=== PATIENT | male | born 1965 | race Two or more races ===

== ENCOUNTER 2017-08-03 09:52 | Day surgery (SDC) | payer OTHER ==
[~2017-08-03] VITALS: Ht 185.4 cm; Wt 140.1 kg
[~2017-08-03 09:52] MED LIST: ACET500 PO; ALBIPROI; ALBU90OI INH; ALBU90OI61 INH; BUPR150ER PO; Budeprion Sr150 MG PO; CEPH500; CEPH500 PO; CIPR500 PO; CLIN300 PO; CLOT1TC TOP; DOC250 PO; DOXY100 PO; ESZO2 PO; Esgic Tablet1 EACH PO; FAMO20 PO; HYDACE5; HYDACE5 PO; HYDACE5325 PO; HYDCOR2.5C PR; IBUHYD PO; IBUP800; IBUP800 PO; IBUPROFEN200 MG; Kristalose20 GM PO; LACTULOSE20 GM/30 M PO; LORA1 PO; MECL25 PO; MUPI2TO TOP; NAPR500 PO; NITR.4SL SL; OMEP20ER PO; OMEP40CA12 PO; ONDA4 PO; ONDA8ODT MM; OXYACE5T PO; OXYACE7.5T PO; OXYC5 PO; Omeprazole20 M1 PO; PERM5TC TOP; PROC10 PO; PROM25; PROM25 PO; Percocet 5-3251 EACH PO; RXHYDACE; RXHYDACE PO; RXLORA1 PO; RXOXYACE PO; RXPROM25 PO; RXSULTRIDS PO; SERT50 PO; SULTRIDS PO; SULTRISS; TRAZ50 PO; ULTRA STRENGT PO; VANC250 PO
== END 2017-08-03 11:59 | disposition home or self-care (01) ==
LOC: ORSCSDS 09:52
PROVIDERS: Internal Medicine Gastroenterology
PROC: 0DBM8ZX Excision of Descending Colon, Via Natural or Artificial Opening Endoscopic, Diagnostic (ICD-10-PCS; principal; 2017-08-03 11:00)
PROC: 0DBN8ZX Excision of Sigmoid Colon, Via Natural or Artificial Opening Endoscopic, Diagnostic (ICD-10-PCS; principal; 2017-08-03 11:00)
PROC: 0DBP8ZX Excision of Rectum, Via Natural or Artificial Opening Endoscopic, Diagnostic (ICD-10-PCS; principal; 2017-08-03 11:00)
PROC: 0DB68ZX Excision of Stomach, Via Natural or Artificial Opening Endoscopic, Diagnostic (ICD-10-PCS; principal; 2017-08-03 11:00)
PROC: 0DB98ZX Excision of Duodenum, Via Natural or Artificial Opening Endoscopic, Diagnostic (ICD-10-PCS; principal; 2017-08-03 11:00)
DX: R11.0 Nausea (principal); K29.50 Unspecified chronic gastritis without bleeding; K63.5 Polyp of colon; K62.1 Rectal polyp; K64.8 Other hemorrhoids; K62.5 Hemorrhage of anus and rectum; Z86.010 Personal history of colon polyps; B19.20 Unspecified viral hepatitis C without hepatic coma; G47.33 Obstructive sleep apnea (adult) (pediatric); F17.210 Nicotine dependence, cigarettes, uncomplicated; F41.9 Anxiety disorder, unspecified; Z79.899 Other long term (current) drug therapy
CPT/HCPCS: 88305; 88342; J2250; J7120

== ENCOUNTER → 2018-11-13 | Outpatient (CLI) | payer OTHER ==
[2018-11-13 18:58] LABS: U Amphetamine Screen Not Detected; U Barbituate Screen Not Detected; U Benzodiazapine Screen Not Detected; U Buprenorphine Screen Not Detected; U Cannabinoids Screen DETECTED; U Cocaine Screen Not Detected; U Methadone Screen Not Detected; U Methamphetamine Screen Not Detected; U Opiates Screen Not Detected; U Oxycodone Screen Not Detected; U Phencyclidine Screen Not Detected; U Propoxyphene Screen Not Detected
== END | disposition home or self-care (01) ==
LOC: LAB 18:15 → LAB SHORT 18:15
PROVIDERS: Psychiatry & Neurology Psychiatry
DX: F43.10 Post-traumatic stress disorder, unspecified (principal)

== ENCOUNTER 2019-06-29 14:36 | Emergency (ER) | payer OTHER ==
[~2019-06-29] VITALS: Ht 185.4 cm; Wt 136.1 kg
[2019-06-29 16:10] LABS: BASOPHILS ABSOLUTE AUTO 0.02 K/mm3 (0.00-0.23); BASOPHILS PERCENT AUTO 0 % (0-2); EOSINOPHILS ABSOLUTE AUTO 0.17 K/mm3 (0.00-0.68); EOSINOPHILS PERCENT AUTO 2 % (0-6); Hematocrit 51.3 % (37.0-53.0); Hemoglobin 17.2 g/dL (13.5-17.5); IMMATURE GRAN ABSOLUTE AUTO 0.01 K/mm3 (0.00-0.10); IMMATURE GRAN PERCENT AUTO 0 % (0-1); LYMPHOCYTES ABSOLUTE AUTO 1.69 K/mm3 (0.84-5.20); LYMPHOCYTES PERCENT AUTO 23 % (21-46); MONOCYTES ABSOLUTE AUTO 0.62 K/mm3 (0.16-1.47); MONOCYTES PERCENT AUTO 8 % (4-13); Mean Corpuscular HGB 29.4 pg (26.0-34.0); Mean Corpuscular HGB Conc 33.5 g/dL (31.5-36.5); Mean Corpuscular Volume 88 fL (80-100); Mean Platelet Volume 10.7 fL (9.1-12.4); NEUTROPHILS ABSOLUTE AUTO 4.87 K/mm3 (1.96-9.15); NEUTROPHILS PERCENT AUTO 66 % (41-73); Platelet Count 180 K/mm3 (150-400); RDW Coefficient Variation 13.2 % (11.7-14.2); RDW Standard Deviation 42.9 fL (35.1-46.3); Red Blood Cell Count 5.86 M/mm3 (4.30-5.90); White Blood Cell Count 7.38 K/mm3 (4.00-11.30)
[2019-06-29 16:32] LABS: Alanine Aminotransfer (ALT/SGP 32 U/L (12-78); Albumin/Globulin Ratio 0.9 (0.8-1.8); Alk Phos 108 U/L (50-136); Anion Gap 3 mmol/L (6-16); Aspartate Aminotrans (AST/SGOT 16 U/L (12-37); Bilirubin, Total 0.5 mg/dL (0.1-1.0); Blood Urea Nitrogen 13 mg/dL (8-24); Bun/Creatinine Ratio 17.1 (12.0-20.0); CO2, Blood 28 mmol/L (21-32); Calcium, Blood 9.1 mg/dL (8.5-10.1); Chloride, Blood 108 mmol/L (98-108); Creatinine, Blood 0.76 mg/dL (0.60-1.20); Globulin, Blood 4.5 g/dL (2.2-4.0); Glomerular Filtration Rate >60 (60-); Glucose, Blood 83 mg/dL (70-99); Potassium, Blood 3.8 mmol/L (3.5-5.5); Sodium, Blood 139 mmol/L (136-145); Total Protein, Blood 8.5 g/dL (6.4-8.2); Troponin I <0.015 ng/mL (0.000-0.040)
[2019-06-29] MEDS ORDERED: ISODIN10 (17:14)
[2019-06-29] MEDS ORDERED: NITR.4SL SL (17:14)
[2019-06-29] MEDS ORDERED: Adderall 15 MG15 MG PO (17:15)
== END 2019-06-29 20:57 | disposition home or self-care (01) ==
LOC: ER 14:36
PROVIDERS: Physician Assistant
DX: R07.9 Chest pain, unspecified (principal)
CPT/HCPCS: 36415; 71046; 80053; 83690; 83880; 84484; 85025; 93005; 93010; 96374; 96375; 99285-25; J1170; J2405

== ENCOUNTER 2020-06-22 11:56 | Day surgery (SDC) | payer OTHER ==
[~2020-06-22] VITALS: Ht 185.4 cm; Wt 137.4 kg
[~2020-06-22 11:56] MED LIST changes: +Adderall 15 MG15 MG PO; +CONSTULOSE10 GM/15 M PO; +ISODIN10; +Seroquel Xr50 MG PO
--- NOTE | 2020-06-22 13:10 | NUR ---
06/22/20 1310 Loraine Cardozo 3 ATTEMPT LEFT AC, 4TH ATEMPT LH UNSUCCESSFUL BY [email or web address]
[2020-08-13] MEDS ORDERED: TRAZ50 (11:28)
[2020-08-13] MEDS ORDERED: SERT50 (11:28)
[2020-08-13] MEDS ORDERED: PROM25 (11:28)
== END 2020-06-22 14:15 | disposition home or self-care (01) ==
LOC: ORSCSDS 11:56
DX: Z12.11 Encounter for screening for malignant neoplasm of colon (principal); G89.29 Other chronic pain; K21.9 Gastro-esophageal reflux disease without esophagitis; G47.33 Obstructive sleep apnea (adult) (pediatric); J44.9 Chronic obstructive pulmonary disease, unspecified; Z86.010 Personal history of colon polyps; Z88.1 Allergy status to other antibiotic agents; Z88.8 Allergy status to other drugs, medicaments and biological substances; Z79.899 Other long term (current) drug therapy; Z87.891 Personal history of nicotine dependence; Z20.822 Contact with and (suspected) exposure to COVID-19
CPT/HCPCS: J2704; J7120

== ENCOUNTER 2020-08-20 11:47 | Day surgery (SDC) | payer OTHER ==
[~2020-08-20] VITALS: Ht 185.4 cm; Wt 138.5 kg
[~2020-08-20 11:47] MED LIST changes: +SERT50; +TRAZ50
--- NOTE | 2020-08-20 12:37 | NUR ---
08/20/20 1237 Josefina Acosta PT HAS DIFFICULTY TOLERATING IV ATTEMPTS. 2 ATTEMPTS IN RIGHT HAND NO FLASHBACK. PT STATES HE WAS GOING TO PASS OUT, PT DISPLAYED LABORED BREATHING AND PT APPEARED TO PASS OUT, NO LONGER THAN 60 SECONDS. PT CLAMMY, ABLE TO STATE WHERE HE IS AND IS ORIENTED AFTER EPISODE.
--- NOTE | 2020-08-20 14:30 | NUR ---
08/20/[address] SUGGS HAD SPOKE WITH THE PATIENT AND TOLD HIM ALL OK THE PATIENT BEGAN COMPLAINING OF BEING DIZZY. HE ASKED ME REPEATEDLY IF HIS COULD COME BACK AND GET HIM DRESSED. I EXPLAINED THAT DUE TO THE COVID RESTRICTIONS THAT WASN'T ALLOWED AND I WOULD HELP HIM DRESS. HE THAN BEGAN TO EXPLAIN OF NAUSEA. DOLLY TUCKER AND I BOTH ASSISTED HIM WITH DRESSING AND PATIENT KEPT TRYING TO LIE DOWN ON THE BED AND WE KEPT REFUSING AND MAKING HIM SIT UP. WE FINISHED DRESSING HIM AND ASSISTED HIM TO THE WHEEL CHAIR AND TOOK HIM OUT TO HIS
== END 2020-08-20 14:15 | disposition home or self-care (01) ==
LOC: ORSCSDS 11:47 → ORD 14:00 → ORSCSDS 14:15
DX: R13.10 Dysphagia, unspecified (principal); Z86.010 Personal history of colon polyps; D12.5 Benign neoplasm of sigmoid colon; D12.3 Benign neoplasm of transverse colon; K63.5 Polyp of colon; K64.8 Other hemorrhoids; G47.33 Obstructive sleep apnea (adult) (pediatric); K74.60 Unspecified cirrhosis of liver; F41.8 Other specified anxiety disorders; B19.20 Unspecified viral hepatitis C without hepatic coma; F31.9 Bipolar disorder, unspecified; E66.9 Obesity, unspecified; Z68.41 Body mass index [BMI] 40.0-44.9, adult; K21.9 Gastro-esophageal reflux disease without esophagitis; Z79.899 Other long term (current) drug therapy
CPT/HCPCS: 88305; J2704; J7120

== ENCOUNTER 2021-06-05 11:14 | Observation (INO) | payer OTHER ==
[~2021-06-05] VITALS: Ht 185.4 cm; Wt 136.1 kg
[2021-06-05 12:43] LABS: BASOPHILS ABSOLUTE AUTO 0.02 K/mm3 (0.00-0.23); BASOPHILS PERCENT AUTO 0 % (0-2); EOSINOPHILS ABSOLUTE AUTO 0.22 K/mm3 (0.00-0.68); EOSINOPHILS PERCENT AUTO 3 % (0-6); Hematocrit 48.8 % (37.0-53.0); Hemoglobin 16.3 g/dL (13.5-17.5); IMMATURE GRAN ABSOLUTE AUTO 0.02 K/mm3 (0.00-0.10); IMMATURE GRAN PERCENT AUTO 0 % (0-1); LYMPHOCYTES ABSOLUTE AUTO 1.86 K/mm3 (0.84-5.20); LYMPHOCYTES PERCENT AUTO 23 % (21-46); MONOCYTES ABSOLUTE AUTO 0.64 K/mm3 (0.16-1.47); MONOCYTES PERCENT AUTO 8 % (4-13); Mean Corpuscular HGB 29.5 pg (26.0-34.0); Mean Corpuscular HGB Conc 33.4 g/dL (31.5-36.5); Mean Corpuscular Volume 88 fL (80-100); Mean Platelet Volume 10.8 fL (9.1-12.4); NEUTROPHILS ABSOLUTE AUTO 5.22 K/mm3 (1.96-9.15); NEUTROPHILS PERCENT AUTO 65 % (41-73); Platelet Count 164 K/mm3 (150-400); RDW Coefficient Variation 13.2 % (11.7-14.2); RDW Standard Deviation 42.9 fL (35.1-46.3); Red Blood Cell Count 5.53 M/mm3 (4.30-5.90); White Blood Cell Count 7.98 K/mm3 (4.00-11.30)
[2021-06-05 13:02] LABS: Troponin I <0.015 ng/mL (0.000-0.040)
[2021-06-05 13:03] LABS: Alanine Aminotransfer (ALT/SGP 40 U/L (12-78); Albumin, Blood 3.4 g/dL (3.4-5.0); Albumin/Globulin Ratio 0.8 (0.8-1.8); Alk Phos 99 U/L (50-136); Anion Gap 4 mmol/L (6-16); Aspartate Aminotrans (AST/SGOT 20 U/L (12-37); Bilirubin, Total 0.5 mg/dL (0.1-1.0); Blood Urea Nitrogen 11 mg/dL (8-24); Bun/Creatinine Ratio 14.8 (12.0-20.0); CO2, Blood 29 mmol/L (21-32); Calcium, Blood 8.9 mg/dL (8.5-10.1); Chloride, Blood 108 mmol/L (98-108); Creatinine, Blood 0.74 mg/dL (0.60-1.20); Globulin, Blood 4.4 g/dL (2.2-4.0); Glomerular Filtration Rate >60 (60-); Glucose, Blood 99 mg/dL (70-99); Potassium, Blood 3.8 mmol/L (3.5-5.5); Sodium, Blood 141 mmol/L (136-145); Total Protein, Blood 7.8 g/dL (6.4-8.2)
--- NOTE | 2021-06-05 20:31 | NUR ---
ADMIT NURSING NOTE 55 YR OLD MALE ADMITTED TO FLOOR FROM THE ED WITH LEFT SIDE CHEST PAIN AND LEFT GROIN PAIN. VOICED SOME INTERMITTTENT NUMBNESS IN LEFT HAND. PLACED ON TELE - SINUS ANU. PAIN CURRENTLY AT 6:10. ALERT AND ORIENTED. ORIENTED TO USE OF CALL LIGHT AND FALL PRECAUTIONS. CALL LIGHT IN REACH
--- NOTE | 2021-06-05 21:22 | NUR ---
CHEST PAIN: WAS 6:10, FRST DOSE OF NITRO SL GIVEN. PAIN DROPPED TO 3:10 5 MIN LATER, RECEIVED 2ND DOSE OF NITRO SL AND PAIN DROPPED TO 0:10. ASYMPTOMATIC. REFUSED HS MEDS. ORIENTED TO CALL LIGHT. RAILS UP X 2. AGREES TO CALL IF NEEDS ARRISE.
--- NOTE | 2021-06-05 22:15 | NUR ---
VOICED FEELING "GOOD", DENIED ANY PAIN. ASYMPTOMATIC. CALL LIGHT IN REACH
--- NOTE | 2021-06-06 00:25 | NUR ---
AWAKENED FOR NEURO CHECK. DENIED CHEST PAIN. NOTE SLIGHT LEFT DROOP OF MOUTH. NO C/O OTHERWISE. ASYMPTOMATIC OTHERWISE. CALL LIGHT IN REACH
--- NOTE | 2021-06-06 02:49 | NUR ---
HAS BEEN RESTING QUIETLY. HEART RATE ANU CARDIC - WAS HIGH 40'S PER MED TELE. UPON ARRIVAL AT ROOM, PT WAS SLEEPING, AWAKENED AND SMILED, DENIED PAIN. STATED WAS FINE. CALL LIGHT IN REACH
--- NOTE | 2021-06-06 03:14 | NUR ---
CVT RN SUMMARY 55 YR OLD ADMITTED EARLIER THIS SHIFT WITH DX OF LEFT CHEST PAIN AND LEFT GROIN PAIN. C/O LEFT HAND NUMBNESS AT THE TIME WELL. PLACED ON MED TELE AND WAS GIVEN NITRO SL, 2 DOSES 5 MIN APART. MED EFFECTIVE, NO C/O CHEST PAIN SINCE. HR ANU CARDIC. ASYMPTOMATIC. ALERT AND ORIENTED. CALL LIGHT IN REACH
[2021-06-06 10:16] LABS: Influenza A, PCR NEGATIVE (NEGATIVE); Influenza B, PCR NEGATIVE (NEGATIVE); Resp Syncytial Virus, PCR NEGATIVE (NEGATIVE); SARS-Cov-2 (COVID-19) PCR, MMC NEGATIVE (NEGATIVE)
[2021-06-06 16:48] LABS: CHOL/HDL RATIO 3.7; Cholesterol 145 mg/dL (50-200); HDL Cholesterol 39 mg/dL (>39); LDL/HDL RATIO 2.2; Low Density Lipoprotein Chol 87 mg/dL (0-110); Triglycerides 96 mg/dL (30-160); Very Low Density Lipoprot Chol 19 mg/dL (6-32)
--- NOTE | 2021-06-06 18:39 | NUR ---
SHIFT SUMMARY PT A/O X4; PLEASANT AND COOPERATIVE WITH CARE. ADMITTED FOR CHEST PAIN. DENIES CP THIS SHIFT AND HAS MOSTLY EXPERIENCED PAIN IN HIS HIPS AND NAUSEA. TREATED PER EMR. 2 PART STRESS TEST STARTING TOMORROW AM. NPO AT MIDNIGHT EXCEPT FOR WATER. PT CAN HAVE BREAKFAST AFTER THE TEST. THE SECOND PART OF THE TEST WILL BE COMPLETED ON . VSS. WILL REPORT TO SIERRA ALBERTO.
--- NOTE | 2021-06-06 20:35 | NUR ---
AWAKENED FOR ASSESSMENT. DENIED CHEST PAIN. DISCUSSED NPO AFTER MIDNIGHT AND CARDIAC STRESS TEST TOMORROW. AGREES TO USE CALL LIGHT IF NEEDS ARRISE. CALL LIGHT IN REACH
--- NOTE | 2021-06-07 04:39 | NUR ---
GEOLOGICAL ENGINEER SUMMARY HAS BEEN RESTING QUIETLY WITH FEW INTERRUPTIONS SINCE HS. DENIED CHEST PAIN, VSS. NPO SINCE MIDNIGHT FOR PREPARATION OF CARDIAC STRESS TEST LATER TODAY. CALL LIGHT IN REACH.
--- NOTE | 2021-06-07 06:40 | NUR ---
EARLIER WHEN NURSE ASSESSED NEURO, PT VOICED VERTIGO WITH NAUSEA AND SOME EMESIS. IV HAD SOME PAIN AND PT DID NOT WANT ANOTHER IV PLACED, MD NOTIFIED AND ONE TIME DOSE OF ZOFRAN SL ORDERED AND GIVEN. NO C/O VOICED SINCE MED GIVEN EARLIER. CALL LIGHT IN REACH
--- NOTE | 2021-06-07 11:31 | NUR ---
PT REQUESTED A LAXITIVE- ASKED PT WWHAT HE TAKES AT HOME FOR A LLAXITIVE AND HER RESPONDED WITH LACTULOSE. PT WENT ON TO EXPLAIN HE TAKES IT ONE TO TWO TIMES A DAY TO KEEP HIM REGULAR AND KEEP HIS AMMONIA DOWN SINCE HE HAD HEP-C. SPOKE TO DR MILLER SHE IS AWARE, RECIEVED AN PRDER FOR BID PRN LACTULOSE. WILL ADMINISTER SOON IT IS VERIFIED BY PHARMACY.
--- NOTE | 2021-06-07 13:48 | NUR ---
CARE ROUNDING- CHECKED ON THE PT HE WAS A LITTLE COLD REQUESTED ROOM TEMP INCREASE, PT STATED HIS BACK PAIN WAS WELL MANAGED WITH THE HEATING PAD NO NEED FOR TYLENOL AT THIS TIME. ENCOURAGED THE PT TO DRINK MORE WATER WELL, HE STATED HE HAD COMPLETELY FORGOTEN HE WAS SUPPOSED TO DRINK. WILL CTM AND ENCOURAGE PO FLUID INTAKE.
--- NOTE | 2021-06-07 16:50 | NUR ---
SHIFT SUMMARY- PT HAS HAD NO ACUTE CHANGE T/O THE DAY. HE DID C/O SOME DIZZINESS THIS MORNING, WHICH APPARENTLY HAPPENS ALOT AT HOME. PERFORMED ORTHOSTATIC VITALS, SPOKE TO DR HEARD, STARTED MECLIZINE, ADMINISTERED A 250ML FLUID BOLUS. PT STATED THE DIZZINESS WAS BETTER 1 HOUR LATER. PT JUST NOW REQUESTED A PRN DOSE OF MECLIZINE FOR SOME DIZZINESS, NO NAUSEA AT THIS TIME. WILLL MEDICATE PER EMAR AND CTM. PT HAD THE FIRST HALF OF A CARDIAC STRESS TEST TODAY ANND DR HEARD SPPOKE TO THE SPOUSE WHEN THE SPOUSE ARRIVED TO SEE THE PT THIS AFTERNOON. PT CURRENTLY SITTING AT THE EOB, DENIES C/P C/O DIZZINESS AT THIS MOMENT.
--- NOTE | 2021-06-07 22:26 | NUR ---
IN BED, ASSISETDWITH CPAP. DISCUSSED NPO AT MIDNIGHT EXCEPT WATER FOR PROCEDURE SCHEDULED TOMORROW. VOICED UNDERSTANDING AND AGREEMENT. POWERGLIDE FUSHED. CALL LIGHT IN REACH.
--- NOTE | 2021-06-08 03:22 | NUR ---
SECTIONAL BELT MOLD ASSEMBLER SUMMARY HAS BEEN RESTING QUIETLY SINCE HS WITH C-PAP IN USE. O2 SATS IN 90'S. NPO EXCEPT WATER SINCE MIDNIGHT FOR CARDIAC PROCEDURE LATER TODAY. DENIED CHEST PAIN WHEN ASKED, NO C/O VOICED OF THIS WRITING. CALL LIGHT IN REACH
[2021-06-08] MEDS ORDERED: ASPI81CH PO (14:05)
[2021-06-08] MEDS ORDERED: Nicoderm Cq1 EAC1 TOP (14:06)
[2021-06-08] MEDS ORDERED: ATOR20 PO (14:07)
--- NOTE | 2021-06-08 14:57 | NUR ---
DISCHARGE SUMMARY PT DISCHARGED TODAY AT 1448 TO HOME. PT's FAMILY AT BEDSIDE DURING DISCHARGE PROCESS. PT VERBALIZED UNDERSTANDING OF DISCHARGE TEACHING AND ORDERS. NO COMPLAINTS OR ISSUES NOTED FROM PT PRIOR TO DC. POWERGLIDE TO ISIDRA AND TELE DISCONTINUED PRIOR TO DISCHARGE. DC PAPERWORK GIVEN TO PT.
== END 2021-06-08 14:46 | disposition home or self-care (01) ==
LOC: ER 11:14 → MEDS 11:15
PROVIDERS: Emergency Medicine; Internal Medicine; ADMIT Internal Medicine
DX: R07.9 Chest pain, unspecified (principal); R42 Dizziness and giddiness; R55 Syncope and collapse; R47.81 Slurred speech; R53.1 Weakness; R10.32 Left lower quadrant pain; I10 Essential (primary) hypertension; I77.9 Disorder of arteries and arterioles, unspecified; G47.33 Obstructive sleep apnea (adult) (pediatric); J44.9 Chronic obstructive pulmonary disease, unspecified; F32.A Depression, unspecified; F17.210 Nicotine dependence, cigarettes, uncomplicated; E66.9 Obesity, unspecified; Z68.39 Body mass index [BMI] 39.0-39.9, adult; Z88.1 Allergy status to other antibiotic agents; Z88.8 Allergy status to other drugs, medicaments and biological substances; Z20.822 Contact with and (suspected) exposure to COVID-19
CPT/HCPCS: 0241U; 36415; 70450; 71046; 71275; 78452; 80053; 80061; 83735; 84484; 85025; 90686; 93005; 93010; 93017; 93306; 93880; 94660; 94760; 94762; 96372; 96374; 96375; 96376; 99285-25; A9270; A9500; C1751; G0008; G0378; J1170; J1650; J2405; J2785; J7050; Q9967

== ENCOUNTER 2022-07-12 18:25 | Emergency (ER) | payer OTHER ==
[~2022-07-12] VITALS: Ht 188 cm; Wt 136.1 kg
[~2022-07-12 18:25] MED LIST changes: +ASPI81CH PO; +ATOR20 PO; +Nicoderm Cq1 EAC1 TOP
[2022-07-12 19:19] LABS: BASOPHILS ABSOLUTE AUTO 0.03 K/mm3 (0.00-0.23); BASOPHILS PERCENT AUTO 0 % (0-2); EOSINOPHILS ABSOLUTE AUTO 0.22 K/mm3 (0.00-0.68); EOSINOPHILS PERCENT AUTO 2 % (0-6); Hemoglobin 16.3 g/dL (13.5-17.5); IMMATURE GRAN ABSOLUTE AUTO 0.03 K/mm3 (0.00-0.10); IMMATURE GRAN PERCENT AUTO 0 % (0-1); LYMPHOCYTES ABSOLUTE AUTO 1.76 K/mm3 (0.84-5.20); LYMPHOCYTES PERCENT AUTO 15 % (21-46); MONOCYTES ABSOLUTE AUTO 0.82 K/mm3 (0.16-1.47); MONOCYTES PERCENT AUTO 7 % (4-13); Mean Corpuscular HGB 29.8 pg (26.0-34.0); Mean Corpuscular HGB Conc 35.4 g/dL (31.5-36.5); Mean Corpuscular Volume 84 fL (80-100); Mean Platelet Volume 10.8 fL (9.1-12.4); NEUTROPHILS ABSOLUTE AUTO 8.55 K/mm3 (1.96-9.15); NEUTROPHILS PERCENT AUTO 75 % (41-73); Platelet Count 184 K/mm3 (150-400); RDW Coefficient Variation 12.8 % (11.7-14.2); RDW Standard Deviation 39.2 fL (35.1-46.3); Red Blood Cell Count 5.47 M/mm3 (4.30-5.90); White Blood Cell Count 11.41 K/mm3 (4.00-11.30)
[2022-07-12 19:40] LABS: Albumin, Blood 3.5 g/dL (3.4-5.0); Albumin/Globulin Ratio 0.8 (0.8-1.8); Bilirubin, Total 0.8 mg/dL (0.1-1.0); Bun/Creatinine Ratio 13.6 (12.0-20.0); Creatinine, Blood 0.74 mg/dL (0.60-1.20); Globulin, Blood 4.5 g/dL (2.2-4.0); Potassium, Blood 3.8 mmol/L (3.5-5.5)
[2022-07-12 20:02] LABS: Source, Urine Clean Catch
[2022-07-12 20:05] LABS: Appearance, Urine Clear (Clear); Bilirubin, Urine Neg (Neg); Blood, Urine Neg (Neg); Color, Urine Yellow (P-Yellow); Glucose Qualitative, Urine Neg (Neg); Ketones, Urine Neg (Neg); Leukocyte Esterase, Urine Neg (Neg); Nitrite, Urine Neg (Neg); Protein, Urine Neg (Neg); Specific Gravity, Urine 1.015 (1.003-1.022); Urobilinogen, Urine NORM (Normal); pH, Urine 6.5 (5.0-8.0)
[2022-07-12] MEDS ORDERED: AMPDEX5 PO (20:13)
[2022-07-13] MEDS ORDERED: ONDA4ODT MM (00:14)
[2022-07-13] MEDS ORDERED: OXAYDO5 M1 PO (00:14)
== END 2022-07-13 00:40 | disposition home or self-care (01) ==
LOC: ER 18:25
PROVIDERS: Emergency Medicine
DX: K85.90 Acute pancreatitis without necrosis or infection, unspecified (principal); J44.9 Chronic obstructive pulmonary disease, unspecified; Z88.1 Allergy status to other antibiotic agents; Z88.8 Allergy status to other drugs, medicaments and biological substances; Z79.899 Other long term (current) drug therapy; Z79.82 Long term (current) use of aspirin; Z87.891 Personal history of nicotine dependence
CPT/HCPCS: 36415; 74177; 80053; 81003; 83690; 84484; 85025; 93005; 93010; 96374-59; 96375; 99284-25; A9270; J2270; J2405; Q9967

== ENCOUNTER 2023-11-12 13:16 | Emergency (ER) | payer OTHER ==
[~2023-11-12] VITALS: Ht 188 cm; Wt 134.7 kg
[~2023-11-12 13:16] MED LIST changes: +AMPDEX5 PO; +ONDA4ODT MM; +OXAYDO5 M1 PO
[2023-11-12] MEDS ORDERED: Droperidol 5 mg/2 ml Vial IV ONE (14:30)
[2023-11-12] MEDS ORDERED: Lactated Ringer's 1,000 ML IV ONE (14:30)
[2023-11-12 15:12] LABS: BASOPHILS ABSOLUTE AUTO 0.02 K/mm3 (0.00-0.23); BASOPHILS PERCENT AUTO 0 % (0-2); EOSINOPHILS ABSOLUTE AUTO 0.18 K/mm3 (0.00-0.68); EOSINOPHILS PERCENT AUTO 3 % (0-6); Hematocrit 44.1 % (37.0-53.0); Hemoglobin 15.3 g/dL (13.5-17.5); IMMATURE GRAN ABSOLUTE AUTO 0.02 K/mm3 (0.00-0.10); IMMATURE GRAN PERCENT AUTO 0 % (0-1); LYMPHOCYTES PERCENT AUTO 32 % (21-46); MONOCYTES ABSOLUTE AUTO 0.58 K/mm3 (0.16-1.47); MONOCYTES PERCENT AUTO 11 % (4-13); Mean Corpuscular HGB 29.8 pg (26.0-34.0); Mean Corpuscular HGB Conc 34.7 g/dL (31.5-36.5); Mean Corpuscular Volume 86 fL (80-100); Mean Platelet Volume 10.9 fL (9.1-12.4); NEUTROPHILS ABSOLUTE AUTO 2.84 K/mm3 (1.96-9.15); NEUTROPHILS PERCENT AUTO 53 % (41-73); Platelet Count 209 K/mm3 (150-400); RDW Coefficient Variation 13.2 % (11.7-14.2); RDW Standard Deviation 41.3 fL (35.1-46.3); Red Blood Cell Count 5.13 M/mm3 (4.30-5.90); White Blood Cell Count 5.34 K/mm3 (4.00-11.30)
[2023-11-12] MEDS ORDERED: Ondansetron HCl 2 MG / ML 2ML Vial IV ONE (15:15)
[2023-11-12] MEDS ORDERED: Morphine Sulfate 4 MG/1 ML Injection IV ONE (15:15)
[2023-11-12] MEDS ORDERED: CeFAZolin Sodium 2,000 MG in NS 100 ML IV ONE (15:15)
[2023-11-12 16:12] VITALS: BP 143/99
[2023-11-12 16:15] LABS: Magnesium, Blood 1.7 mg/dL (1.6-2.4)
[2023-11-12 16:16] LABS: Albumin, Blood 3.5 g/dL (3.4-5.0); Albumin/Globulin Ratio 0.8 (0.8-1.8); Bilirubin, Total 0.9 mg/dL (0.1-1.0); Bun/Creatinine Ratio 12.4 (12.0-20.0); Calcium, Blood 9.3 mg/dL (8.5-10.1); Creatinine, Blood 0.65 mg/dL (0.60-1.20); Globulin, Blood 4.3 g/dL (2.2-4.0); Potassium, Blood 3.4 mmol/L (3.5-5.5); Total Protein, Blood 7.8 g/dL (6.4-8.2)
[2023-11-12] MEDS ORDERED: Cephalexin500 MG PO (16:26)
[2023-11-12] MEDS ORDERED: OXYC5 PO (16:26)
== END 2023-11-12 17:02 | disposition home or self-care (01) ==
LOC: ER 13:16
PROVIDERS: Physician Assistant
DX: L03.115 Cellulitis of right lower limb (principal); J44.9 Chronic obstructive pulmonary disease, unspecified; Z79.899 Other long term (current) drug therapy; Z79.82 Long term (current) use of aspirin; Z88.1 Allergy status to other antibiotic agents; Z88.8 Allergy status to other drugs, medicaments and biological substances; Z87.891 Personal history of nicotine dependence
CPT/HCPCS: 73590; 80053; 83735; 85025; 93971; 96365; 96375; 99284-25; J0690; J1790; J2270; J7120

== ENCOUNTER 2024-05-10 14:36 | Inpatient (IN) | payer OTHER ==
[~2024-05-10] VITALS: Ht 188 cm; Wt 132.6 kg
[~2024-05-10 14:36] MED LIST changes: +Cephalexin500 MG PO
[2024-05-10] MEDS ORDERED: OxyCODONE HCL 5 MG TAB PO ONE ×2 (14:50→16:55)
[2024-05-10] MEDS ORDERED: Ondansetron HCl 2 MG / ML 2ML Vial IV ONE (15:10)
[2024-05-10] MEDS ORDERED: Vancomycin HCL 2,000 MG in NS 500 ML IV ONE (15:10)
[2024-05-10 15:29] LABS: Hematocrit 43.7 % (37.0-53.0); Hemoglobin 15.8 g/dL (13.5-17.5); Mean Corpuscular HGB 30.1 pg (26.0-34.0); Mean Corpuscular HGB Conc 36.2 g/dL (31.5-36.5); Mean Corpuscular Volume 83 fL (80-100); Mean Platelet Volume 10.9 fL (9.1-12.4); NRBC ABSOLUTE 0.03 K/mm3 (0.00-0.02); NRBC Auto 0.1 /100 WBC (0.0-0.2); Platelet Count 171 K/mm3 (150-400); RDW Coefficient Variation 13.3 % (11.7-14.2); RDW Standard Deviation 40.8 fL (35.1-46.3); Red Blood Cell Count 5.25 M/mm3 (4.30-5.90); White Blood Cell Count 22.81 K/mm3 (4.00-11.30)
[2024-05-10 15:43] LABS: Albumin/Globulin Ratio 0.4 (0.8-1.8); Bilirubin, Direct 0.7 mg/dL (0.0-0.3); Bilirubin, Indirect 0.8 mg/dL (0.1-0.7); Bilirubin, Total 1.5 mg/dL (0.1-1.0); Bun/Creatinine Ratio 32.7 (12.0-20.0); Creatinine, Blood 0.77 mg/dL (0.60-1.20); Globulin, Blood 5.1 g/dL (2.2-4.0); Magnesium, Blood 2.5 mg/dL (1.6-2.4); Phosphorus, Blood 1.9 mg/dL (2.5-4.9); Potassium, Blood 3.9 mmol/L (3.5-5.5); Total Protein, Blood 7.1 g/dL (6.4-8.2)
[2024-05-10] MEDS ORDERED: Piperacillin/Tazobactam Sod 3.375 GM in NS 100 ML IV ONE (16:00)
[2024-05-10 16:10] LABS: BAND PERCENT MAN 25 % (0-8); BASOPHILS PERCENT MAN 0 % (0-2); EOSINOPHILS ABSOLUTE MAN 0.68 K/mm3 (0.00-0.68); EOSINOPHILS PERCENT MAN 3 % (0-6); LYMPHOCYTES % ATYPICAL MANUAL 1 % (0-0); LYMPHOCYTES ABSOLUTE MAN 0.91 K/mm3 (0.84-5.20); LYMPHOCYTES PERCENT MAN 3 % (21-46); METAMYELOCYTE ABSOLUTE MAN 0.22 K/mm3 (0.00-0.00); METAMYELOCYTE PERCENT MAN 1 % (0-0); MONOCYTES ABSOLUTE MAN 0.91 K/mm3 (0.16-1.47); MONOCYTES PERCENT MAN 4 % (4-13); MYELOCYTE ABSOLUTE MAN 0.22 K/mm3 (0.00-0.00); MYELOCYTE PERCENT MAN 1 % (0-0); NEUTROPHILS ABSOLUTE MAN 19.84 K/mm3 (1.96-9.15); SEG NEUTROPHILS PERCENT MAN 62 % (41-73); TOTAL CELLS COUNTED 100
[2024-05-10] MEDS ORDERED: FLU VACC TS2024-25(6MOS UP)/PF 45 MCG/0.5 ML SYRINGE IM SCH (17:00)
[2024-05-10] MEDS ORDERED: NS 1,000 ML IV SCH (17:00)
[2024-05-10] MEDS ORDERED: Ondansetron HCl 2 MG / ML 2ML Vial IV PRN (17:00)
[2024-05-10] MEDS ORDERED: OxyCODONE HCL 5 MG TAB PO PRN (17:00)
[2024-05-10] MEDS ORDERED: Acetaminophen 325 MG TABLET PO PRN (17:05)
[2024-05-10] MEDS ORDERED: Ketorolac Tromethamine 15mg Vial IV ONE (17:05)
[2024-05-10] MEDS ORDERED: Naloxone HCl 0.4MG / ML 1ML Vial IV PRN (17:20)
[2024-05-10] MEDS ORDERED: Sodium Phosphate 30 MM in Dextrose 5% 500 ML IV STA (17:20)
[2024-05-10] MEDS ORDERED: FentaNYL Citrate 50 MCG/ML 2 ML Injection IV PRN (17:20)
[2024-05-10] MEDS ORDERED: Lactated Ringer's 1,000 ML IV ONE ×2 (18:00→23:55)
[2024-05-10 18:16] VITALS: BP 119/72
[2024-05-10 18:43] VITALS: BP 125/82
[2024-05-10] MEDS ORDERED: Albuterol HFA200 ACT/6.7 GM INH INH PRN (19:15)
[2024-05-10 20:32] VITALS: BP 118/80
[2024-05-10 20:33] LABS: International Normalized Ratio 1.18; Prothrombin Time Results 12.5 Sec (9.7-11.5)
[2024-05-10] MEDS ORDERED: Metoprolol Tartrate 25 MG Tab PO SCH (21:00)
[2024-05-10] MEDS ORDERED: Docusate Sodium 100 MG Cap PO SCH (21:00)
[2024-05-10] MEDS ORDERED: Lactobacil 2-S.Thermo-Bifido 1 1 Cap PO SCH (21:00)
[2024-05-10 23:33] VITALS: BP 98/58
[2024-05-11] VITALS (18 sets, daily range): BP systolic 104–163; BP diastolic 56–102
[2024-05-11] MEDS ORDERED: Cefepime HCl 2,000 MG in NS 100 ML IV SCH
[2024-05-11] MEDS ORDERED: Vancomycin HCL 2,000 MG in NS 500 ML IV SCH (03:00)
[2024-05-11 05:26] LABS: Hematocrit 39.7 % (37.0-53.0); Hemoglobin 14.1 g/dL (13.5-17.5); Mean Corpuscular HGB 30.1 pg (26.0-34.0); Mean Corpuscular HGB Conc 35.5 g/dL (31.5-36.5); Mean Corpuscular Volume 85 fL (80-100); Mean Platelet Volume 10.8 fL (9.1-12.4); NRBC ABSOLUTE 0.03 K/mm3 (0.00-0.02); NRBC Auto 0.2 /100 WBC (0.0-0.2); Platelet Count 168 K/mm3 (150-400); RDW Coefficient Variation 13.5 % (11.7-14.2); RDW Standard Deviation 42.1 fL (35.1-46.3); Red Blood Cell Count 4.68 M/mm3 (4.30-5.90); White Blood Cell Count 18.34 K/mm3 (4.00-11.30)
[2024-05-11 05:46] LABS: Albumin, Blood 1.8 g/dL (3.4-5.0); Albumin/Globulin Ratio 0.4 (0.8-1.8); Bilirubin, Total 1.3 mg/dL (0.1-1.0); Bun/Creatinine Ratio 34.5 (12.0-20.0); Calcium, Blood 8.1 mg/dL (8.5-10.1); Creatinine, Blood 0.78 mg/dL (0.60-1.20); Globulin, Blood 4.3 g/dL (2.2-4.0); Magnesium, Blood 2.4 mg/dL (1.6-2.4); Potassium, Blood 3.1 mmol/L (3.5-5.5); Total Protein, Blood 6.1 g/dL (6.4-8.2)
[2024-05-11 05:48] LABS: BASOPHILS PERCENT MAN 0 % (0-2); EOSINOPHILS ABSOLUTE MAN 0.18 K/mm3 (0.00-0.68); EOSINOPHILS PERCENT MAN 1 % (0-6); LYMPHOCYTES % ATYPICAL MANUAL 2 % (0-0); LYMPHOCYTES PERCENT MAN 4 % (21-46); METAMYELOCYTE ABSOLUTE MAN 0.36 K/mm3 (0.00-0.00); METAMYELOCYTE PERCENT MAN 2 % (0-0); MONOCYTES ABSOLUTE MAN 0.18 K/mm3 (0.16-1.47); MONOCYTES PERCENT MAN 1 % (4-13); MYELOCYTE ABSOLUTE MAN 0.18 K/mm3 (0.00-0.00); MYELOCYTE PERCENT MAN 1 % (0-0); NEUTROPHILS ABSOLUTE MAN 16.32 K/mm3 (1.96-9.15); SEG NEUTROPHILS PERCENT MAN 89 % (41-73); TOTAL CELLS COUNTED 100
--- NOTE | 2024-05-11 06:24 | NUR ---
SHIFT SUMMARY ASSUMED CARE OF PT AT 1900. PT A&O4, COOPERATIVE IN CARE AND ABLE TO MAKE NEEDS KNOWN. PT PRESENTED WITH CELLULITIS TO THE LEFT LEG, FROM ANKLE TO KNEE, BLISTERS TO THE CHIN AND SCABS TO THE CALF. PICTURES IN CHART. PT DENIES CP/PRESSURE AND SOB. VSS AND PT REMAINED ON RA. BED IN LOWEST POSITION AND CALL LIGHT WITHIN REACH.
[2024-05-11] MEDS ORDERED: Diltiazem HCl 5 MG / ML 5ML Vial IV STA (08:53)
[2024-05-11] MEDS ORDERED: Aspirin 81 MG Chew PO SCH (09:00)
[2024-05-11] MEDS ORDERED: Enoxaparin 40 MG/0.4 ML SYR SC SCH (09:00)
[2024-05-11] MEDS ORDERED: dilTIAZem HCL 120 MG CAP.CD PO SCH (09:00)
[2024-05-11] MEDS ORDERED: Atorvastatin 10 MG Tab PO SCH (09:00)
[2024-05-11] MEDS ORDERED: NS 250 ML IV PRN (13:00)
[2024-05-11] MEDS ORDERED: Potassium Chloride 20 MEQ TabCR PO ONE (13:05)
[2024-05-11] MEDS ORDERED: dilTIAZem HCL 30 MG TAB PO SCH (16:00)
--- NOTE | 2024-05-11 17:49 | NUR ---
PATIENT ALERT AND ORIENTED X4. VERY TALKATIVE AND HAPPY WITH STAFF. FAMILY IN TO VISIT THIS SHIFT. MOVING IN BED IND. NEEDING 2 PERSON ASSIST WITH FWW WHEN UP TO BSC. PATIENT VERY WEAK AND DECONDITIONED. PHYSICAL THERAPY ORDERS IN PLACE. TURNING SELF IN BED. TELE SHOWING AFIB WITH HR 100-150'S THIS AM. PATIENT DENIES CHEST PAIN/PRESSURE/PALPITATIONS. MANAGING COGNITIVE ENGINEER ATTEMPTED, BUT PATIENT HR TOO FAST. THIS RN UPDATED DR. MERCADO. PATIENT PLACED ON CARDIZEM GTT TODAY. CARDIZEM GTT OFF AT 1602. HE TRENDING BELOW 110. PO CARDIZEM ON BOARD. DR. MERCADO UPDATED ON HR AND BP TREND THROUGHOUT DAY. EDEMA NOTED TO BLE WORSE IN LLE WITH CELLULITIS. IV ABX INFUSED. ON ROOM AIR, LUNGS SOUNDS CLEAR AND DIM IN BASES. DENIES SOB/COUGH. EVEN AND UNLABORED RESPIRTATIONS. SATING ABOVE 95%. BOWEL TONES PRESENT. STOOL SOFTNERS GIVEN THIS AM. NO BOWEL MOVEMENT THIS SHIFT. USING URINAL TO VOID. URINE CHRISTIANO IN COLOR. ATTENDS IN PLACE. UP TO BSC X1 THIS SHIFT. TOLERATING PO DIET. DENIES ABDOMINAL PAIN. NAUSEA X1 THIS SHIFT AND MEDICATED WITH ZOFRAN. ABDOMINAL ULTRASOUND COMPLETED THIS AM. LLE CELLULITIS WEEPING WITH BROKEN BLISTERS. SEE WOUND CARE ORDERS. THIS RN CLEANSED WOUNDS ON ANTERIOR AND POSTERIOR LEFT LOWER EXTREMITY. AND SON AT BEDSIDE THIS AFTERNOON AND UPDATED BY THIS RN. PATIENT EATING DINNER AT THIS TIME. CALL LIGHT IN REACH. DENIES NEEDS.
--- NOTE | 2024-05-11 22:31 | NUR ---
THIS RN ASSUMED CARE OF PT AROUND 1900. PT IS ALERT AND ORIENTED X4, FOLLOWING COMMANDS AND VERY RESPECTFUL. PT SOUNDS CLEAR/DIMINISHED, ON ROOM AIR SATTING >92% AND PT DENIES SHORTNESS OF BREATH. PT HEART RATE IS IN THE 90-100s, PT DENIES CHEST PAIN AND BLOOD PRESSURE STABLE AT 138/98. PT DOES HAVE OPEN BLISTERS ON BI-LATERAL LEGS, DRAINING OPEN TO AIR. NO OTHER INTERVENTIONS AT THIS TIME. PLAN OF CARE CONTINUED.
[2024-05-12] VITALS (7 sets, daily range): BP systolic 120–145; BP diastolic 71–96
[2024-05-12 02:40] LABS: Hematocrit 39.3 % (37.0-53.0); Mean Corpuscular HGB 30.2 pg (26.0-34.0); Mean Corpuscular HGB Conc 35.6 g/dL (31.5-36.5); Mean Corpuscular Volume 85 fL (80-100); Mean Platelet Volume 10.5 fL (9.1-12.4); NRBC ABSOLUTE 0.06 K/mm3 (0.00-0.02); NRBC Auto 0.3 /100 WBC (0.0-0.2); Platelet Count 184 K/mm3 (150-400); RDW Coefficient Variation 13.7 % (11.7-14.2); RDW Standard Deviation 42.5 fL (35.1-46.3); Red Blood Cell Count 4.64 M/mm3 (4.30-5.90); White Blood Cell Count 17.72 K/mm3 (4.00-11.30)
[2024-05-12 02:59] LABS: Alanine Aminotransfer (ALT/SGP 117 U/L (12-78); Albumin, Blood 1.8 g/dL (3.4-5.0); Albumin/Globulin Ratio 0.4 (0.8-1.8); Alk Phos 146 U/L (50-136); Anion Gap 7 mmol/L (3-11); Aspartate Aminotrans (AST/SGOT 124 U/L (12-37); Bilirubin, Total 1.2 mg/dL (0.1-1.0); Blood Urea Nitrogen 17 mg/dL (8-24); Bun/Creatinine Ratio 25.2 (12.0-20.0); CO2, Blood 29 mmol/L (21-32); Calcium, Blood 8.3 mg/dL (8.5-10.1); Chloride, Blood 102 mmol/L (98-108); Creatinine, Blood 0.67 mg/dL (0.60-1.20); Globulin, Blood 4.4 g/dL (2.2-4.0); Glomerular Filtration Rate 109 (60-); Glucose, Blood 146 mg/dL (70-99); Potassium, Blood 3.9 mmol/L (3.5-5.5); Sodium, Blood 134 mmol/L (136-145); Total Protein, Blood 6.2 g/dL (6.4-8.2); Vancomycin, Trough 14.6 ug/mL (5.0-10.0)
--- NOTE | 2024-05-12 04:25 | NUR ---
PT SUMMARY PT IS SLEEPING IN BED PEACEFULLLY, NO NEW EVENTS TO REPORT OVERNIGHT, PT IS ALERT AND FOLLOWING COMMANDS APPROPRIATELY. PLAN OF CARE CONTINUED.
[2024-05-12] MEDS ORDERED: Diltiazem HCl 180 MG Cap.CD PO SCH (09:00)
--- NOTE | 2024-05-12 10:40 | NUR ---
AM NOTE: PATIENT ALERT AND ORIENTED THIS AM. STATES HE IS FEELING BETTER EACH DAY. OVERALL VERY WEAK. PHYSICAL THERAPY THIS AM. USING LIFT FOR TRANSFERS FOR SAFETY. PATIENT UP TO RECLINER AND BATHROOM THIS AM. TELE CONTINEUS TO SHOW AFIB WITH HR 110-130'S. DENIES CHEST PAIN/PRESSURE/PALPITATIONS. EDEMA NOTED TO BLE. WITH CELLULITITS, BROKEN BLISTERS, AND WEEPING TO LLE. WOUND CARE COMPLETED THIS AM. IV'S SALINE LOCKED. IV ABX INFUSED. PO CARDIZEM GIVEN THIS AM. ON ROOM AIR SATING ABOVE 95%. DENIES SOB/COUGH. USING URINAL TO VOID. DENIES ABDOMINAL PAIN/NAUSEA. DRINKING LOTS OF WATER AND JUICE. ECHO COMPLETED. MOM VISITING AT BEDSIDE, AND UPDATED BY THIS RN. CALL LIGHT IN REACH.
[2024-05-12] MEDS ORDERED: Polyethylene Glycol 3350 17 gm PO PRN (12:55)
[2024-05-12] MEDS ORDERED: Methyl Salicylate/Menth/Camph 57 GM TUBE TOP PRN (16:20)
[2024-05-12] MEDS ORDERED: Furosemide 10 MG/ML 4ML Vial IV SCH (18:00)
--- NOTE | 2024-05-12 18:44 | NUR ---
SHIFT SUMMARY: NO ACUTE CHANGES. SEE CHARTED VITALS THROUGHOUT SHIFT. PATIENT REMAINS ALERT AND ORIENTED. TELE CONTINUES TO SHOW AFIB WITH HR TRENDING 100-110'S. CONTINUES TO DENY CHEST PAIN/PRESSURE THROUGHOUT SHIFT. REMAINS ON ROOM AIR. TOLERATING PO DIET. IV ABX INFUSED. LLE CONTINUES TO WEEP, CLEANSED THROUGHOUT SHIFT WITH WOUND CLEANSER. LEFT OPEN TO AIR AT THIS TIME DUE TO THE AMOUNT OF DRAINAGE. FAMILY AT BEDSIDE THIS SHIFT AND UPDATED BY THIS RN. CALL LIGHT IN REACH. PATIENT IN BED AT THIS TIME, DENIES NEEDS.
--- NOTE | 2024-05-12 20:43 | NUR ---
ASSUMED CARE PT IS A&O X4; SPO2 >92% RA; MAP >65; RATE 90-110'S AFIB. PT DENIES CP AND SOB AT THIS TIME. C/O MILD NAUSEA, MANAGED WELL PER EMAR. 6-12/11 ABDOMINAL/LEFT LOWER LEG PAIN. ABDOMEN NOT TENDER TO PALPATION; PT STATES FEELS LIKE "MUSCLE STRAIN" PAIN, BT AUSCULTATED X4 QUADRANTS. LEFT LEG CONTINUES TO WEEP W/ DRY FLOW UNDERNEATH AND OPEN TO AIR. RESTING QUIETLY AT THIS TIME.
[2024-05-12] MEDS ORDERED: Apixaban 5 MG Tab PO SCH (21:00)
[2024-05-13 00:04] VITALS: BP 143/71
[2024-05-13 03:21] VITALS: BP 128/85
--- NOTE | 2024-05-13 06:35 | NUR ---
SHIFT SUMMARY PT RESTED QUIETLY T/O NIGHT. LLE CONTINUES TO WEEP AND DRYFLOWS CHANGED T/O NIGHT; WOUND CARE DONE PER ORDER W/ SPRAY AND GAUZE. PAINFUL THIS AM AFTER AMBULATION W/ NAUSEA, TREATED PER EMAR. PT STATES NAUSEA OCCURS WHEN PAIN PEAKS. NO ACUTE EVENTS OVERNIGHT.
[2024-05-13 07:43] VITALS: BP 141/90
--- NOTE | 2024-05-13 08:00 | NUR ---
MD AT BEDSIDE AND ASSESSED PATIENT. NOTIFIED PATIENT OF THE INCREASE IN CARDIAC MEDICATIONS AND STATUS CHANGE. AWAITING FURTHER ORDERS.
[2024-05-13 08:49] LABS: Bun/Creatinine Ratio 21.1 (12.0-20.0); Calcium, Blood 8.2 mg/dL (8.5-10.1); Creatinine, Blood 0.62 mg/dL (0.60-1.20); Potassium, Blood 3.8 mmol/L (3.5-5.5)
[2024-05-13] MEDS ORDERED: dilTIAZem HCL 240 MG CAP.CD PO SCH (09:00)
[2024-05-13 11:47] VITALS: BP 135/99
--- NOTE | 2024-05-13 12:07 | NUR ---
PATIENT WORKED WITH PT AND GOT VERY UPSET AND WORKED UP. PATIENT RELAXED AND IS SITTING IN THE CHAIR. STATED HE WOULD LIKE A BED BATH AND WAS MEDICATED WITH PAIN MEDICATION PER EMAR PRIOR TO WORKING WITH PT. IS EATING LUNCH AND SITTING IN CHAIR WITH CALL LIGHT WITHIN REACH. EVEN AND UNLABORED RESPIRATIONS.
[2024-05-13 16:16] VITALS: BP 134/85
--- NOTE | 2024-05-13 16:51 | NUR ---
END OF SHIFT SUMMARY: PATIENT IS MEDICAL WITH TELE STATUS. IS ALERT AND ORIENTED X4 AND ACTIVE IN HIS CARE. IS ON TELE SHOWING AFIB WITH RATE IN 90'S. IS SATTING >92% ON ROOM AIR, EVEN AND UNLABORED RESPIRATIONS. PATIENT WOUND SPRAYED THROUGHOUT THE SHIFT AND OPEN TO AIR. WORKED WITH PT TODAY AND GOT UPSET REGARDING USING THE GAIT BELT. PT REQUESTED HE NOT WORK WITH THERAPIST AGAINT. PATIENT A 1 PERSON ASSIST WITH THE FRONT WHEELED WALKER, LIMITED WEIGHT ON THE LEFT LEG DUE TO THE CELLULITIS. IV ANTIBIOTICS AND LASIX GIVEN THROUGHOUT SHIFT PER EMAR. ANISA AT BEDSIDE. NO EVENTS THROUGHOUT SHIFT, WILL CONTINUE TO MONITOR UNTIL NIGHTSHIFT HANDOFF REPORT.
--- NOTE | 2024-05-13 22:17 | NUR ---
ASSUMED CARE PT RESTING QUIETLY IN RECLINER. DENIES CP, SOB, AND NAUSEA AT THIS TIME. C/O OF 10/10 PAIN IN LLE AT START OF SHIFT, TREATING PER EMAR. LLE OPEN TO AIR AND WOUND CARE DONE PER ORDER (WOUND SPRAY/STERILE GAUZE). WOUND WEEPING SEROUS FLUID. PT STATED THAT HE IS NOW HALLUCINATING (SHADOWS AND "YOU LOOK WAVY") NEURO APPEARS UNCHANGED W/ PT APPROPRIATE AND ORIENTED; PERRLA; VSS. DR ALFRED AWARE W/ ORDERS TO MONITOR.
--- NOTE | 2024-05-13 22:47 | NUR ---
UPDATE PT NOW DENIES HALLUCINATIONS.
[2024-05-14 02:23] LABS: Hematocrit 40.2 % (37.0-53.0); Mean Corpuscular HGB 29.9 pg (26.0-34.0); Mean Corpuscular HGB Conc 34.8 g/dL (31.5-36.5); Mean Corpuscular Volume 86 fL (80-100); Mean Platelet Volume 10.4 fL (9.1-12.4); NRBC ABSOLUTE 0.02 K/mm3 (0.00-0.02); NRBC Auto 0.1 /100 WBC (0.0-0.2); Platelet Count 204 K/mm3 (150-400); RDW Coefficient Variation 14.3 % (11.7-14.2); RDW Standard Deviation 44.6 fL (35.1-46.3); Red Blood Cell Count 4.68 M/mm3 (4.30-5.90); White Blood Cell Count 16.69 K/mm3 (4.00-11.30)
[2024-05-14 02:43] LABS: Vancomycin, Trough 16.6 ug/mL (5.0-10.0)
[2024-05-14 02:48] LABS: Bun/Creatinine Ratio 20.1 (12.0-20.0); Calcium, Blood 7.9 mg/dL (8.5-10.1); Creatinine, Blood 0.7 mg/dL (0.60-1.20); Potassium, Blood 3.4 mmol/L (3.5-5.5)
--- NOTE | 2024-05-14 05:26 | NUR ---
SHIFT SUMMARY NO ACUTE EVENTS OVERNIGHT EXCEPT FOR HALLUCINATIONS WHICH ARE NO LONGER PRESENT (SEE PREVIOUS NOTE). PT CONVERTED TO SR EARLIER IN SHIFT AND PAIN IN LLE IS AT TOLERABLE LEVELS PER PT. PT AMBULATES WELL TO RECLINER. LLE WOUND CONTINUES TO WEEP SEROUS FLUID, DRY FLOW CHANGED T/O NIGHT AND WOUND CARE DONE PER ORDER.
[2024-05-14 07:25] VITALS: BP 163/101
[2024-05-14] MEDS ORDERED: Potassium Chloride 20 MEQ TabCR PO ONE (07:55)
[2024-05-14 11:23] VITALS: BP 139/70
[2024-05-14 15:47] VITALS: BP 156/91
[2024-05-14] MEDS ORDERED: CeFAZolin Sodium 2,000 MG in NS 100 ML IV SCH (16:00)
--- NOTE | 2024-05-14 16:57 | NUR ---
SHIFT SUMMARY: PATIENT IS MEDICAL WITH TELE STATUS. ALERT AND ORIENTED X4 AND ACTIVE IN HIS CARE. IS SATTING >92% ON ROOM AIR, EVEN AND UNLABORED RESPIRATIONS. ON TELE SHOWING SINUS WITH RATE IN 80'S. WORKED WITH PT TODAY AND THEY RECCOMEND HE USE A LIFT FOR SAFETY. PATIENT UNDERSTOOD AND USED A LIFT TO GET TO CHAIR BUT PREFERS TO USE WALKER WITH 1 PERSON ASSIST TO THE BATHROOM. PLAN IS CONTINUE TO DIURESIS AND CONTINUE IV ANTIBIOTICS. NO EVENTS THROUHGOUT SHIFT, WILL CONTIUE TO MONITOR TILL HAND OF REPORT TO ONCOMING NEURODIAGNOSTIC TECHNOLOGIST RN.
[2024-05-14 20:00] VITALS: BP 112/65
--- NOTE | 2024-05-14 20:49 | NUR ---
THIS RN ASSUMED CARE OF PT AT 1900. PT IS ALERT AND ORIENTED X4, IS ABLE TO FOLLOW COMMANDS AND MOVE AROUND IN THE ROOM. PT HEART RATE IS IN NSR 90s, BLOOD PRESSURE STABLE AT 112/65, PT DENIES CHEST PAIN. PT SOUNDS CLEAR/DIMINSHED, ON ROOM AIR SATTING >92%, PT DENIES SHORTNESS OF BREATH. PT DOES HAVE CELLULITIS ON LLE, THIS RN DID A DRESSING CHANGE AROUND 2000 PER WOUND DRESSING ORDER. PT WAS IN PAIN, DID GIVE PAIN MEDS PER EMAR. NO OTHER INTERVENTIONS AT THIS TIME. PLAN OF CARE CONTINUED.
[2024-05-15 04:00] VITALS: BP 144/86
[2024-05-15 04:27] LABS: Hematocrit 37.3 % (37.0-53.0); Mean Corpuscular HGB Conc 34.9 g/dL (31.5-36.5); Mean Corpuscular Volume 86 fL (80-100); Mean Platelet Volume 10.1 fL (9.1-12.4); Platelet Count 210 K/mm3 (150-400); RDW Coefficient Variation 14.3 % (11.7-14.2); RDW Standard Deviation 44.6 fL (35.1-46.3); Red Blood Cell Count 4.34 M/mm3 (4.30-5.90); White Blood Cell Count 15.73 K/mm3 (4.00-11.30)
[2024-05-15 05:28] LABS: Calcium, Blood 7.8 mg/dL (8.5-10.1); Creatinine, Blood 0.54 mg/dL (0.60-1.20); Potassium, Blood 3.5 mmol/L (3.5-5.5)
--- NOTE | 2024-05-15 06:15 | NUR ---
PT SUMMARY PT WAS VERY RESTLESS OVERNIGHT, PT GOT UP AND SAT IN CHAIR, PT STATED THEY FELT BETTER. PT ALERT AND ORIENTED, CALLING OUT APPROPRIATELY. NO NEW EVENTS TO REPORT OVERNIGHT. PLAN OF CARE CONTINUED.
[2024-05-15 07:18] VITALS: BP 147/78
[2024-05-15] MEDS ORDERED: Potassium Chloride 10 Meq Tablet SA PO SCH (08:00)
[2024-05-15] MEDS ORDERED: OxyCODONE HCL 5 MG TAB PO PRN (09:45)
--- NOTE | 2024-05-15 10:21 | NUR ---
AM NOTE: PATIENT ALERT AND ORIENTED. COMPLAINS OF LLE AND BILATERAL HIP PAIN THIS AM. MEDICATED PER EMAR. PERRLA, WEARING GLASSES. TELE SHOWING SR WITH HR 90'S. DENIES CHEST PAIN/PRESSURE/PALPIATIONS. SBP 140'S. IV'S SALINE LOCKED AND IV ABX INFUSED. EDEMA NOTED TO BLE. LLE RED, SWOLLEN AND OPEN BLISTERS. WOUND CARE COMPLETED THIS AM. ON ROOM AIR SATING ABOVE 95%. DENIES SOB. OCCASIONAL COUGH WITH SPUTUM PRODUCTION. BOWEL TONES PRESENT. TOLERATING PO DIET. FLUID RESTRICTION IN PLACE. PHYSICAL THERAPY IN TO SEE PATIENT THIS AM. PATIENT COMPLAINS OF PAIN DESPITE PAIN MEDICATION ADMINISTRATION. THIS RN DISCUSSED PAIN WITH DR. MERCADO. ORDERS TO INCREASE PO OXYCODONE TO 10MG Q4 PRN. ORDERS IN PLACE.
[2024-05-15 11:48] VITALS: BP 123/83
--- NOTE | 2024-05-15 13:38 | NUR ---
REPORT FROM CM [place]OWLAND POLITICAL SCIENCE INSTRUCTOR, PATIENT TRANSFERRED TO ROOM 333 FROM PCU 20, PATIENT COMFORTABLE IN BED, NO S/S OF DISTRESS, RESPS EVEN AND NONLABORED, CALL LIGHT WITH IN REACH, CLEARLY MAKES NEEDS KNOWN
--- NOTE | 2024-05-15 13:44 | NUR ---
TRANSFER: NO ACUTE CHANGES, SEE PREVIOUS NOTES. PATIENT REMAINS ALERT AND ORIENTED. ALL PERSONAL BELONGINGS BROUGHT WITH PATIENT. PATIENT UPDATED FAMILY ON TRANSFER TO ROOM 333. VITAL SIGNS STABLE. LLE DRESSING CHANGE THIS AM. REPORTED OFF TO [facility] FLOOR RN. PATIENT BROUGHT BY WHEELCHAIR.
[2024-05-15 16:07] VITALS: BP 154/78
[2024-05-15 19:16] VITALS: BP 145/83
[2024-05-16 03:57] VITALS: BP 121/80
--- NOTE | 2024-05-16 05:29 | NUR ---
SHIFT SUMMARY NOC PT A/O X 4. PLEASANT AND COOPERATIVE WITH CARE. VSS. NO ACUTE CHANGES TO REPORT. PT LLE CELLULITIS WEEPING AND CLEANED PER WOUND CARE ORDERS, IT IS OPEN TO AIR CURRENTLY. LLE AND BILATERAL HIP PAIN BEING MANAGED PER EMAR. PT RECEIVING IV ABX FOR LLE CELLULITIS. PT ON 2L FREE WATER RESTRICTION AND IS DIURESING. ON TELE SINUS RHYTHM IN 80'S. PT DISCHARGE TO [facility] PENDING INSURANCE AUTHORIZATION. PT CURRENTLY RESTING WITH BED IN LOWEST POSITION, AND CALL LIGHT WITHIN REACH.
[2024-05-16 07:58] VITALS: BP 129/74
[2024-05-16 10:24] LABS: Bun/Creatinine Ratio 32.8 (12.0-20.0); Calcium, Blood 8.1 mg/dL (8.5-10.1); Creatinine, Blood 0.52 mg/dL (0.60-1.20); Potassium, Blood 4.2 mmol/L (3.5-5.5)
[2024-05-16 15:49] VITALS: BP 151/70
--- NOTE | 2024-05-16 17:47 | NUR ---
SHIFT SUMMARY MR LEMUS C/O FEELING DIZZY INTERMITTENTLY, WHICH HE SAID IS NOT NEW. WORKED WITH PHYSICAL THERAPY TODAY AND ASSESSED HIGH FALL RISK. PT EDUCATED TO NOT GET UP OUT OF BED WITHOUT STAFF ASSISTANCE AND BED ALARM ON. PT VERBALISED UNDERSTANDING OF FALL PRECAUTIONS AND VERBALISED AGREEMENT TO CALL FOR ASSISTANCE BEFORE GETTING OOB. LEFT LEG US AND DOPPLAR STUDY DONE. LEFT LEG WOUND LEFT OPEN TO AIR, PHOTOS UPDATED IN THE CHART. ON TELEMETRY, SINUS RHYTHM, NO CALLS FROM HYDROGEOLOGY PROFESSOR. BED LOW, CALL LIGHT IN REACH.
[2024-05-16 19:54] VITALS: BP 132/65
--- NOTE | 2024-05-17 02:19 | NUR ---
REMOVED PT UPPER LEFT POWERGLIDE PER CHARGE NURSE IV BECAME INFILTRATED DURING CEFLAZOLIN INFUSION. PT TOLERATED WELL MEDICATION INFUSION CHANGED TO RIGHT UPPER POWERGLIDE WITH NS AT 20/HOUR.
[2024-05-17 04:04] VITALS: BP 135/80
[2024-05-17 06:11] LABS: BASOPHILS ABSOLUTE AUTO 0.03 K/mm3 (0.00-0.23); BASOPHILS PERCENT AUTO 0 % (0-2); EOSINOPHILS ABSOLUTE AUTO 0.14 K/mm3 (0.00-0.68); EOSINOPHILS PERCENT AUTO 1 % (0-6); Hematocrit 37.1 % (37.0-53.0); IMMATURE GRAN ABSOLUTE AUTO 0.18 K/mm3 (0.00-0.10); IMMATURE GRAN PERCENT AUTO 1 % (0-1); LYMPHOCYTES ABSOLUTE AUTO 1.51 K/mm3 (0.84-5.20); LYMPHOCYTES PERCENT AUTO 10 % (21-46); MONOCYTES ABSOLUTE AUTO 0.99 K/mm3 (0.16-1.47); MONOCYTES PERCENT AUTO 6 % (4-13); Mean Corpuscular HGB 30.2 pg (26.0-34.0); Mean Corpuscular Volume 86 fL (80-100); Mean Platelet Volume 9.9 fL (9.1-12.4); NEUTROPHILS ABSOLUTE AUTO 12.78 K/mm3 (1.96-9.15); NEUTROPHILS PERCENT AUTO 82 % (41-73); Platelet Count 239 K/mm3 (150-400); RDW Coefficient Variation 14.5 % (11.7-14.2); RDW Standard Deviation 45.5 fL (35.1-46.3); White Blood Cell Count 15.63 K/mm3 (4.00-11.30)
[2024-05-17 06:36] LABS: Albumin, Blood 1.8 g/dL (3.4-5.0); Albumin/Globulin Ratio 0.3 (0.8-1.8); Bilirubin, Total 0.6 mg/dL (0.1-1.0); Bun/Creatinine Ratio 19.9 (12.0-20.0); Calcium, Blood 8.1 mg/dL (8.5-10.1); Creatinine, Blood 0.7 mg/dL (0.60-1.20); Globulin, Blood 5.6 g/dL (2.2-4.0); Potassium, Blood 3.8 mmol/L (3.5-5.5); Total Protein, Blood 7.4 g/dL (6.4-8.2)
--- NOTE | 2024-05-17 06:36 | NUR ---
SHIFT SUMMARY PT ALERT AND ORIENTED TIMES 4. PT ON FLUID RESTRICTION 1500ML DAY AND 500ML NIGHT. PT HAS PG IN RIGHT AND LEFT UPPER THAT DOES NOT DRAW. PT IS FALL RISK AND BED ALARM ON. PT COOPERATIVE WITH CARE, ABLE TO AMBULATE TO AND FROM TOILET WITHOUT ISSUE. LEFT POWERGLIDE BECAME INFILTRATED AND THUS REMOVED. PT TOLERATED WELL. MEDICATION INFUSED THROUGH RIGHT UPPER POWERGLIDE AT PRESENT TIME. BED IN LOW POSITION, CALL LIGHT WITHIN REACH, RAILS TIMES 2.
[2024-05-17 07:53] VITALS: BP 141/75
[2024-05-17] MEDS ORDERED: Albumin (Human) 25gm/100ml 100 ML IV SCH (10:35)
[2024-05-17 15:19] VITALS: BP 151/78
[2024-05-17] MEDS ORDERED: Vancomycin HCL 2,000 MG in NS 500 ML IV SCH (18:00)
--- NOTE | 2024-05-17 18:12 | NUR ---
SHIFT SUMMARY MR LEMUS HAS OPEN WOUND TO LEFT LOWER LEG. LEFT LEFT EDEMATUS, RED, PITTING EDEMA TO THE FOOT. PAINFUL, PAIN CONTROLLED WITH MEDICATIONS. ONE EPISODE OF NAUSEA. HE HAS JUST LEFT FOR CT SCAN AND PLAN IS FOR NPO AFTER MIDNIGHT INCASE SURGERY IS NEEDED TOMORROW. MR LEMUS VERBALISED UNDERSTANDING OF THE PLAN OF CARE, DID VOICE ANXIETY ABOUT POSSIBLE SURGERY. UP TO SHOWER TODAY, 2 PERSON ASSISTANCE TO TRANSFER. HE DOES A LOT OF THE TRANSFERING HIMSELF BUT DOES LOOK VERY UNSTEADY TRANSFERING. ON TELEMETRY, SR, NO CALLS FROM [employer].
[2024-05-17 21:17] VITALS: BP 148/73
[2024-05-18] VITALS (10 sets, daily range): BP systolic 104–155; BP diastolic 52–81
--- NOTE | 2024-05-18 16:54 | NUR ---
SHIFT SUMMARY MR LEMUS HAS HAD MORE LEFT KNEE PAIN TODAY, MANAGED WITH MEDICATIONS AND REPOSITIONING. GOOD FAMILY SUPPORT, TALKING AND LAUGHING WITH FAMILY. AWAITING O.R.THIS EVENING. HE HAS BEEN N.P.O. ALL SHIFT. NO BM X 3 DAYS; HE SAID HE DOES NOT FEEL UNCOMFORTABLE AND WILL WAIT UNTIL POST OP AND TAKE MIRALAX. + FLATUS. BED LOW, CALL LIGHT IN REACH.
[2024-05-18] MEDS ORDERED: Lactated Ringer's 1,000 ML IV ONE (17:32)
--- NOTE | 2024-05-18 17:43 | NUR ---
PT ARRIVES TO PACU VIA BED FROM RM 333 AT 1745. TALKATIVE & JOKING. PLEASANT & COOPERATIVEN. AFEBRILE/VSS. LR AT TKO NOW INFUSING. SURGICAL PACK COMPLETE. SURGICAL HAT/PAS SLEEVE TO RLE/BP CUFF PLACED. NO COMPLAINTS AT THIS TIME.
[2024-05-18] MEDS ORDERED: OxyCODONE HCL 5 MG TAB PO PRN (18:25)
[2024-05-18] MEDS ORDERED: HYDROmorphone HCl/Pf 1MG SYR IV PRN (18:30)
[2024-05-18] MEDS ORDERED: Bisacodyl 10 MG Supp PR PRN (18:30)
[2024-05-18] MEDS ORDERED: NS KCl 20mEq 1,000 ML IV SCH (18:30)
[2024-05-18] MEDS ORDERED: Acetaminophen 325 MG TABLET PO PRN (18:30)
[2024-05-18] MEDS ORDERED: Magnesium Hydroxide Conc 10 ML UDC PO PRN (18:30)
[2024-05-18] MEDS ORDERED: FentaNYL Citrate 50 MCG/ML 2 ML Injection ONE (18:31)
[2024-05-18] MEDS ORDERED: propofoL 20 ML IV ONE (18:31)
[2024-05-18] MEDS ORDERED: Ondansetron 4 MG TAB PO PRN (18:35)
[2024-05-18] MEDS ORDERED: Ondansetron HCl 2 MG / ML 2ML Vial IV PRN (18:35)
[2024-05-18] MEDS ORDERED: Naloxone HCl 0.4MG / ML 1ML Vial IV PRN (18:35)
[2024-05-18] MEDS ORDERED: Ketorolac Tromethamine 15mg Vial IV PRN (18:40)
[2024-05-18] MEDS ORDERED: Ketorolac Tromethamine 30mg Vial ONE (18:42)
[2024-05-18] MEDS ORDERED: Ondansetron HCl 2 MG / ML 2ML Vial ONE (18:42)
[2024-05-18] MEDS ORDERED: Dexamethasone Sod Phos 10 MG/ML 1ML VIAL ONE (18:42)
--- NOTE | 2024-05-18 18:43 | NUR ---
PT TO OR RM 2 VIA BED AT 1825 IN STABLE CONDITION.
[2024-05-18] MEDS ORDERED: HYDROmorphone HCl/Pf 1MG SYR ONE (18:46)
[2024-05-18] MEDS ORDERED: Docusate Sodium 100 MG Cap PO SCH (21:00)
[2024-05-19 00:51] VITALS: BP 141/66
[2024-05-19 04:27] VITALS: BP 142/66
[2024-05-19 06:54] VITALS: BP 153/74
[2024-05-19 07:01] LABS: BASOPHILS ABSOLUTE AUTO 0.03 K/mm3 (0.00-0.23); BASOPHILS PERCENT AUTO 0 % (0-2); EOSINOPHILS PERCENT AUTO 0 % (0-6); Hematocrit 33.5 % (37.0-53.0); Hemoglobin 11.4 g/dL (13.5-17.5); IMMATURE GRAN ABSOLUTE AUTO 0.17 K/mm3 (0.00-0.10); IMMATURE GRAN PERCENT AUTO 1 % (0-1); LYMPHOCYTES ABSOLUTE AUTO 0.46 K/mm3 (0.84-5.20); LYMPHOCYTES PERCENT AUTO 2 % (21-46); MONOCYTES ABSOLUTE AUTO 0.61 K/mm3 (0.16-1.47); MONOCYTES PERCENT AUTO 3 % (4-13); Mean Corpuscular HGB 30.2 pg (26.0-34.0); Mean Corpuscular Volume 89 fL (80-100); Mean Platelet Volume 10.2 fL (9.1-12.4); NEUTROPHILS ABSOLUTE AUTO 20.44 K/mm3 (1.96-9.15); NEUTROPHILS PERCENT AUTO 94 % (41-73); Platelet Count 249 K/mm3 (150-400); RDW Coefficient Variation 14.3 % (11.7-14.2); RDW Standard Deviation 45.9 fL (35.1-46.3); Red Blood Cell Count 3.78 M/mm3 (4.30-5.90); White Blood Cell Count 21.71 K/mm3 (4.00-11.30)
[2024-05-19 07:27] LABS: Anion Gap 12 mmol/L (3-11); Blood Urea Nitrogen 16 mg/dL (8-24); Bun/Creatinine Ratio 27.1 (12.0-20.0); CO2, Blood 27 mmol/L (21-32); Calcium, Blood 8.5 mg/dL (8.5-10.1); Chloride, Blood 100 mmol/L (98-108); Creatinine, Blood 0.59 mg/dL (0.60-1.20); Glomerular Filtration Rate 113 (60-); Glucose, Blood 258 mg/dL (70-99); Magnesium, Blood 2.3 mg/dL (1.6-2.4); Potassium, Blood 3.4 mmol/L (3.5-5.5); Sodium, Blood 136 mmol/L (136-145); Vancomycin, Trough 12.3 ug/mL (5.0-10.0)
--- NOTE | 2024-05-19 07:42 | NUR ---
SHIFT SUMMARY PT ALERT AND ORIENTED TIMES 4. PT ON FLUID RESTRICTION 1500ML DAY AND 500ML NIGHT. PT HAS PG IN RIGHT UPPER THAT DOES NOT DRAW. PT IS FALL RISK AND BED ALARM ON. PT COOPERATIVE WITH CARE, MEDICATION INFUSED THROUGH RIGHT UPPER POWERGLIDE AT PRESENT TIME. PT RETURNED FROM PROCEDURE ON LEFT KNEE. DRESSING IS CLEAN., NO LEAKING OR DISCHARGE VISIBLE. PT WAS VERY MOBILE, SITTING AT EDGE OF BED APPROPRIATELY, AND ASKING TO BE HELPED TO BENCH, JUST TO GET UP AND MOVE AROUND. PT APPEARED TO TOLERATE WELL. BED IN LOW POSITION, CALL LIGHT WITHIN REACH, RAILS TIMES 2.
[2024-05-19] MEDS ORDERED: Vancomycin HCL 1,500 MG in NS 250 ML IV SCH (08:00)
[2024-05-19] MEDS ORDERED: Enoxaparin 40 MG/0.4 ML SYR SC SCH (09:00)
[2024-05-19 15:15] VITALS: BP 133/89
--- NOTE | 2024-05-19 18:19 | NUR ---
PATIENT IS ALERT AND ORIENTED AND COOPERATIVE WITH CARE. ON RA. PATIENT STATES HE IS AMBULATING BETTER TODAY AND WITHOUT PAIN. DR. SAVAGE ASSESSED, CLEANSED AND DRESSED THE WOUND THIS AFTERNOON. WOUND CARE ORDERS PLACED. PATIENT SHOWERED THIS EVENING. AT THE BEDSIDE. USES THE URINAL. WILL CONTINUE TO MONITOR
[2024-05-19 19:58] VITALS: BP 135/64
[2024-05-20 03:33] VITALS: BP 146/66
--- NOTE | 2024-05-20 04:13 | NUR ---
SHIFT SUMMARY PT ALERT ORIENTED X 4 CALLS APPROPRIATELY. USES URINAL AT BEDSIDE. LLE REMAINS VERY EDEMATOUS AND RED. C/O PAIN TO AREA medicated with oxy and fentanyl WITH GOOD PAIN RELIEF. HE HAS A POWER GLIDE TO HIS RT ARM SL. HES POST OP DAY #2 OF A I&D TO HIS LT LEG. VSS ON RA. HE HAS A HX OF SLEEP APNEA AND SAID THAT HE NO LONGER HAS HIS CPAP. REMAINS ON A 2000 FLUID RESTRICTION. REMAINS ON A DAILY WEIGHT. HE REMAINS ON VANCO AND ANCEF FOR CELLULITIS. HES WBAT TO HIS LT LEG. DRESSING WAS CHANGED YESTERDAY BY THE MD AND HE HAS A ORDER FOR DAILY DRESSING CHANGES. HIS STAYED WITH HIM LAST NIGHT. RESTING AT THIS TIME WITH CALL LIGHT IN REACH
[2024-05-20 06:16] LABS: BASOPHILS ABSOLUTE AUTO 0.02 K/mm3 (0.00-0.23); BASOPHILS PERCENT AUTO 0 % (0-2); EOSINOPHILS ABSOLUTE AUTO 0.01 K/mm3 (0.00-0.68); EOSINOPHILS PERCENT AUTO 0 % (0-6); Hematocrit 32.7 % (37.0-53.0); Hemoglobin 11.1 g/dL (13.5-17.5); IMMATURE GRAN PERCENT AUTO 1 % (0-1); LYMPHOCYTES ABSOLUTE AUTO 0.75 K/mm3 (0.84-5.20); LYMPHOCYTES PERCENT AUTO 5 % (21-46); MONOCYTES ABSOLUTE AUTO 0.85 K/mm3 (0.16-1.47); MONOCYTES PERCENT AUTO 6 % (4-13); Mean Corpuscular HGB Conc 33.9 g/dL (31.5-36.5); Mean Corpuscular Volume 88 fL (80-100); Mean Platelet Volume 10.2 fL (9.1-12.4); NEUTROPHILS ABSOLUTE AUTO 12.78 K/mm3 (1.96-9.15); NEUTROPHILS PERCENT AUTO 88 % (41-73); Platelet Count 271 K/mm3 (150-400); RDW Coefficient Variation 14.2 % (11.7-14.2); RDW Standard Deviation 45.9 fL (35.1-46.3); White Blood Cell Count 14.51 K/mm3 (4.00-11.30)
[2024-05-20 06:36] LABS: Alanine Aminotransfer (ALT/SGP 62 U/L (12-78); Albumin, Blood 2.4 g/dL (3.4-5.0); Albumin/Globulin Ratio 0.5 (0.8-1.8); Alk Phos 165 U/L (50-136); Anion Gap 9 mmol/L (3-11); Aspartate Aminotrans (AST/SGOT 78 U/L (12-37); Bilirubin, Total 0.5 mg/dL (0.1-1.0); Blood Urea Nitrogen 18 mg/dL (8-24); Bun/Creatinine Ratio 32.3 (12.0-20.0); CO2, Blood 28 mmol/L (21-32); Calcium, Blood 8.1 mg/dL (8.5-10.1); Chloride, Blood 102 mmol/L (98-108); Creatinine, Blood 0.56 mg/dL (0.60-1.20); Glomerular Filtration Rate 115 (60-); Glucose, Blood 267 mg/dL (70-99); Potassium, Blood 3.6 mmol/L (3.5-5.5); Sodium, Blood 135 mmol/L (136-145); Total Protein, Blood 7.4 g/dL (6.4-8.2); Vancomycin, Trough 25.2 ug/mL (5.0-10.0)
--- NOTE | 2024-05-20 06:38 | NUR ---
LAB CALLED WITH A CRITICAL RESULT OF HIS VANCO TROUGH. IT WAS 25.2. I CALLED PHARMACY TO INFORM THEM OF THE RESULTS.
[2024-05-20 07:09] VITALS: BP 154/71
--- NOTE | 2024-05-20 08:00 | NUR ---
pt laying in bed, states he's crying his leg hurts so bad, gave 0.5mg dilaudid with good relief, a/ox4, pleasant and cooperative with care, follows commands well, states he got about four hrs of sleep last night, states his leg is worse, is more swollen and more painful, lungs are a bit course t/o, states it can be productive, currently on r/a, tele in place running sr in the 's, 4+ edema noted to lle, power glide to taj, site is clear and patent, btx4, reports no bm in three days, voids via urinal, skin is clear except the lle has a dressing to the knee area, below the dressing is very red, with black areas, hot and swollen, skin is tight, maew, can wiggle toes on left foot, ashley, call light in reach.
[2024-05-20 15:31] VITALS: BP 117/62
--- NOTE | 2024-05-20 17:05 | NUR ---
SUMMARY PT SITTING UP IN BED WATCHING TV, PT HAS BEEN PLEASANT AND COOPERATIVE WITH CARE, MED PER EMAR FOR PAIN, PT USING HIS CALL LIGHT APPROPRIATELY, LEFT LEG WRAPPED AND COVERED, VSS WILL CONT TO MONITOR
[2024-05-20] MEDS ORDERED: Metolazone 2.5 MG Tab PO ONE (17:30)
[2024-05-20 19:31] LABS: Vancomycin, Random 9.7 ug/mL
[2024-05-20 19:46] VITALS: BP 141/66
[2024-05-20] MEDS ORDERED: Vancomycin HCL 1,500 MG in NS 250 ML IV SCH (20:00)
[2024-05-21 03:32] VITALS: BP 144/87
--- NOTE | 2024-05-21 04:43 | NUR ---
SHIFT SUMMARY PT ALERT ORIENTED X 4 ABLE TO VERBALIZE NEEDS DRESSING WAS CHANGED TO LT LEG I&D SITE. PT C/O PAIN MEDICATED WITH TORADOL, DILAUDID AND OXY WITH GOOD PAIN RELIEF. ALL BEDDING WAS CHANGED. HE REMAINS ON A DAILY WEIGHT AND 2000 FLUID RESTRICTION. REMAINS ON VANCO AND ANCEF ORDERED. HES WBAT TO LT LEG. VSS ON RA SATTING AT 96%. REMAINS ON TELEMETRY AT ST AT A RATE OF 100. HE HAS A POWER GLIDE INTACT TO HIS RT ARM. LEFT LEG REMAINS RED AND EDEMATOUS C/O NAUSEA MEDICATED WITH ZOFRAN WITH GOOD RELIEF. RESTING IN BED AT THIS TIME WITH CALL LIGHT IN REACH
[2024-05-21 05:29] LABS: BASOPHILS ABSOLUTE AUTO 0.03 K/mm3 (0.00-0.23); BASOPHILS PERCENT AUTO 0 % (0-2); EOSINOPHILS ABSOLUTE AUTO 0.04 K/mm3 (0.00-0.68); EOSINOPHILS PERCENT AUTO 0 % (0-6); Hematocrit 33.5 % (37.0-53.0); Hemoglobin 11.2 g/dL (13.5-17.5); IMMATURE GRAN ABSOLUTE AUTO 0.07 K/mm3 (0.00-0.10); IMMATURE GRAN PERCENT AUTO 1 % (0-1); LYMPHOCYTES ABSOLUTE AUTO 0.97 K/mm3 (0.84-5.20); LYMPHOCYTES PERCENT AUTO 7 % (21-46); MONOCYTES ABSOLUTE AUTO 1.11 K/mm3 (0.16-1.47); MONOCYTES PERCENT AUTO 8 % (4-13); Mean Corpuscular HGB 29.3 pg (26.0-34.0); Mean Corpuscular HGB Conc 33.4 g/dL (31.5-36.5); Mean Corpuscular Volume 88 fL (80-100); Mean Platelet Volume 9.7 fL (9.1-12.4); NEUTROPHILS PERCENT AUTO 84 % (41-73); Platelet Count 265 K/mm3 (150-400); RDW Coefficient Variation 14.2 % (11.7-14.2); RDW Standard Deviation 45.2 fL (35.1-46.3); Red Blood Cell Count 3.82 M/mm3 (4.30-5.90); White Blood Cell Count 13.42 K/mm3 (4.00-11.30)
[2024-05-21 06:02] LABS: Albumin, Blood 2.2 g/dL (3.4-5.0); Albumin/Globulin Ratio 0.4 (0.8-1.8); Bilirubin, Total 0.8 mg/dL (0.1-1.0); Bun/Creatinine Ratio 22.2 (12.0-20.0); Calcium, Blood 8.3 mg/dL (8.5-10.1); Creatinine, Blood 0.68 mg/dL (0.60-1.20); Globulin, Blood 5.2 g/dL (2.2-4.0); Potassium, Blood 3.9 mmol/L (3.5-5.5); Total Protein, Blood 7.4 g/dL (6.4-8.2)
[2024-05-21 08:20] VITALS: BP 151/71
[2024-05-21] MEDS ORDERED: Apixaban 5 MG Tab PO SCH (09:00)
[2024-05-21] MEDS ORDERED: Metolazone 2.5 MG Tab PO SCH (18:00)
--- NOTE | 2024-05-21 19:19 | NUR ---
SHIFT SUMMARY PATIENT A/OX4, ABLE TO MAKE NEEDS KNOWN. FLUIDS RESTRICTION IN PLACE 2000ML DAILY, PATIENT TOLERATING WELL AND AGREEABLE TO PLAN. WOUND CARE PROVIDED BY [facility] SHIFT. TELEMETRY IN PLACE, NO EVENTS NOTED TODAY. IV ANTIBIOTICS INFUSED PER AUG. POWERGLIDE DRESSING CHANGED TODAY. PATIENT ABLE TO HAVE SHOWER THIS AM. COMPLAINING THIS EVENING OF NAUSEA AT DINNER, PRN ZOFRAN GIVEN. NO OTHER CONCERNS AT THIS TIME.
[2024-05-21 19:31] VITALS: BP 135/61
[2024-05-21] MEDS ORDERED: Doxycycline Hyclate 100 MG in Dextrose 5% 250 ML IV SCH (21:00)
[2024-05-22 04:11] VITALS: BP 160/59
--- NOTE | 2024-05-22 05:39 | NUR ---
SHIFT SUMMARY NOC PT A/O X 4. PLEASANT AND COOPERATIVE WITH CARE. VSS. 1900 VANCO TROUGH CANCELLED AFTER PT REFUSED LAB DRAW. PHARMACY AND HOSPITALIST NOTIFIED AND VANCO DC'D AND DOXYCYCLINE ORDERED. PT LLE PAIN BEING MANAGED PER EMAR. POWERGLIDE IN [place] DOES NOT DRAW. TELEMETRY DC'D BY DAY . PT CURRENTLY RESTING WITH BED IN LOWEST POSITION, AND CALL LIGHT WITHIN REACH.
[2024-05-22 06:09] LABS: BASOPHILS ABSOLUTE AUTO 0.02 K/mm3 (0.00-0.23); BASOPHILS PERCENT AUTO 0 % (0-2); EOSINOPHILS PERCENT AUTO 1 % (0-6); Hematocrit 33.3 % (37.0-53.0); Hemoglobin 11.5 g/dL (13.5-17.5); IMMATURE GRAN ABSOLUTE AUTO 0.02 K/mm3 (0.00-0.10); IMMATURE GRAN PERCENT AUTO 0 % (0-1); LYMPHOCYTES ABSOLUTE AUTO 0.74 K/mm3 (0.84-5.20); LYMPHOCYTES PERCENT AUTO 7 % (21-46); MONOCYTES ABSOLUTE AUTO 0.81 K/mm3 (0.16-1.47); MONOCYTES PERCENT AUTO 8 % (4-13); Mean Corpuscular HGB 30.1 pg (26.0-34.0); Mean Corpuscular HGB Conc 34.5 g/dL (31.5-36.5); Mean Corpuscular Volume 87 fL (80-100); Mean Platelet Volume 9.7 fL (9.1-12.4); NEUTROPHILS ABSOLUTE AUTO 8.62 K/mm3 (1.96-9.15); NEUTROPHILS PERCENT AUTO 84 % (41-73); Platelet Count 275 K/mm3 (150-400); RDW Standard Deviation 44.7 fL (35.1-46.3); Red Blood Cell Count 3.82 M/mm3 (4.30-5.90); White Blood Cell Count 10.31 K/mm3 (4.00-11.30)
[2024-05-22 06:38] LABS: Bun/Creatinine Ratio 28.5 (12.0-20.0); Calcium, Blood 8.3 mg/dL (8.5-10.1); Creatinine, Blood 0.67 mg/dL (0.60-1.20); Potassium, Blood 3.5 mmol/L (3.5-5.5)
[2024-05-22 07:54] VITALS: BP 161/74
[2024-05-22] MEDS ORDERED: Furosemide 10 MG/ML 4ML Vial IV SCH (10:00)
[2024-05-22] MEDS ORDERED: Elastic Bandage/Support 1 EA MISC TOP ONE (11:10)
[2024-05-22] MEDS ORDERED: Water 500ML With 1 PKT Castile Soap Enema PR ONE (11:15)
[2024-05-22] MEDS ORDERED: Doxycycline Hyclate 100 MG TAB PO SCH (13:00)
[2024-05-22] MEDS ORDERED: Amoxicillin/Clavulanate K 875 MG Tab PO SCH (13:00)
[2024-05-22 13:57] LABS: CORONAVIRUS COVID-19 AG Negative (NEGATIVE); INFLUENZA A AG Negative (NEGATIVE); INFLUENZA B AG Negative (NEGATIVE)
[2024-05-22] MEDS ORDERED: Acetaminophen650 M1 PO (14:32)
[2024-05-22] MEDS ORDERED: AMOCLA875 PO (14:33)
[2024-05-22] MEDS ORDERED: BISA10S PR (14:33)
[2024-05-22] MEDS ORDERED: ELIQUIS5 M2 PO (14:33)
[2024-05-22] MEDS ORDERED: METSALMENC TOP (14:33)
[2024-05-22] MEDS ORDERED: DOCU100 PO (14:35)
[2024-05-22] MEDS ORDERED: FURO40 PO (14:35)
[2024-05-22] MEDS ORDERED: DILTIAZEM ER360 MG PO (14:35)
[2024-05-22] MEDS ORDERED: DULCOLAX400 MG/5 M PO (14:36)
[2024-05-22] MEDS ORDERED: POTA10T PO (14:37)
[2024-05-22] MEDS ORDERED: MIRALAX17 GM PO (14:37)
[2024-05-22] MEDS ORDERED: OXAYDO5 M1 PO (14:37)
[2024-05-22] MEDS ORDERED: SPIR25 PO (14:37)
[2024-05-22] MEDS ORDERED: VISBIOME 112.51 EACH PO (14:38)
--- NOTE | 2024-05-22 15:25 | NUR ---
NOTE: ATTEMPTED TO CALL NR TWICE TO GIVE REPORT WITH NO SUCCESS. PT IS SCHEDULED TO LEAVE AT 1530.
--- NOTE | 2024-05-22 15:50 | NUR ---
DISCHARGE NOTE PT DISCHARGED TO [facility], PERSONAL BELONGINGS RETURNED. IV REMOVED. HARD SCRIPT FOR PRESCRIPTIONS IN THE FOLDER. L LEG WRAPPED IN INGRID BOOT. UNABLE TO GIVE REPORT TO [facility] DUE TO NO ONE ANSWERING THEIR PHONE.
--- NOTE | 2024-05-22 17:15 | NUR ---
NOTE: REPORT GIVEN TO DOLLY MATHEW, AT [facility] AT 1715.
[2024-05-23] MEDS ORDERED: Furosemide 40 MG Tab PO SCH (09:00)
[2024-05-23] MEDS ORDERED: Spironolactone 25 MG Tab PO SCH (09:00)
[2024-05-23] MEDS ORDERED: Potassium Chloride 10 Meq Tablet SA PO SCH (09:00)
== END 2024-05-22 15:44 | DRG 854 ==
LOC: ER 14:36 → MEDS 16:57 → PCU 16:57 → MEDS 05-15 13:30
PROVIDERS: Emergency Medicine; Internal Medicine; Orthopaedic Surgery; Student in an Organized Health Care Education/Training Program; ADMIT Student in an Organized Health Care Education/Training Program
PROC: 3E03329 Introduction of Other Anti-infective into Peripheral Vein, Percutaneous Approach (ICD-10-PCS; 2024-05-10)
PROC: 0JBP0ZZ Excision of Left Lower Leg Subcutaneous Tissue and Fascia, Open Approach (ICD-10-PCS; principal; 2024-05-18 13:30)
DX: A41.9 Sepsis, unspecified organism (principal); E87.1 Hypo-osmolality and hyponatremia; L02.416 Cutaneous abscess of left lower limb; L03.116 Cellulitis of left lower limb; I85.10 Secondary esophageal varices without bleeding; E87.20 Acidosis, unspecified; R65.20 Severe sepsis without septic shock; G47.33 Obstructive sleep apnea (adult) (pediatric); E80.6 Other disorders of bilirubin metabolism; E83.39 Other disorders of phosphorus metabolism; J44.9 Chronic obstructive pulmonary disease, unspecified; K76.0 Fatty (change of) liver, not elsewhere classified; I48.91 Unspecified atrial fibrillation; R74.01 Elevation of levels of liver transaminase levels; Z88.1 Allergy status to other antibiotic agents; Z88.8 Allergy status to other drugs, medicaments and biological substances; Z79.82 Long term (current) use of aspirin; Z79.899 Other long term (current) drug therapy; Z86.14 Personal history of Methicillin resistant Staphylococcus aureus infection; Z90.49 Acquired absence of other specified parts of digestive tract; Z90.89 Acquired absence of other organs; Z87.891 Personal history of nicotine dependence; Z98.890 Other specified postprocedural states
CPT/HCPCS: 36415; 73562-LT; 73590; 73701; 76705; 76882; 80048; 80053; 80202; 82248; 83605; 83735; 84100; 85025; 85027; 85610; 85651; 86140; 86141; 87040; 87070; 87075; 87205; 87428-QW; 93005; 93010; 93306; 93971; 94760; 94762; 96365; 96366; 96375; 97110; 97162; 97530; 99285-25; A9270; J0690; J0692; J1100; J1171; J1650; J1885; J1940; J2405; J2543; J2704; J3010; J3370; J3480; J7040; J7050; J7060; J7120; P9047; Q9967

== ENCOUNTER 2024-06-25 11:05 | Emergency (ER) | payer OTHER ==
[~2024-06-25] VITALS: Ht 188 cm; Wt 129.7 kg
[~2024-06-25 11:05] MED LIST changes: +AMOCLA875 PO; +Acetaminophen650 M1 PO; +BISA10S PR; +DILTIAZEM ER360 MG PO; +DOCU100 PO; +DULCOLAX400 MG/5 M PO; +ELIQUIS5 M2 PO; +FURO40 PO; +METSALMENC TOP; +MIRALAX17 GM PO; +POTA10T PO; +SPIR25 PO; +VISBIOME 112.51 EACH PO
[2024-06-25 11:10] VITALS: BP 139/77
[2024-06-25] MEDS ORDERED: Cephalexin Monohydrate 500 MG Cap PO ONE (11:50)
[2024-06-25] MEDS ORDERED: Trimethoprim/Sulfamethoxazole DS Tab PO ONE (11:50)
[2024-06-25 12:35] LABS: BASOPHILS ABSOLUTE AUTO 0.03 K/mm3 (0.00-0.23); BASOPHILS PERCENT AUTO 0 % (0-2); EOSINOPHILS ABSOLUTE AUTO 0.19 K/mm3 (0.00-0.68); EOSINOPHILS PERCENT AUTO 3 % (0-6); Hematocrit 39.1 % (37.0-53.0); Hemoglobin 13.3 g/dL (13.5-17.5); IMMATURE GRAN ABSOLUTE AUTO 0.02 K/mm3 (0.00-0.10); IMMATURE GRAN PERCENT AUTO 0 % (0-1); LYMPHOCYTES ABSOLUTE AUTO 1.35 K/mm3 (0.84-5.20); LYMPHOCYTES PERCENT AUTO 17 % (21-46); MONOCYTES ABSOLUTE AUTO 0.47 K/mm3 (0.16-1.47); MONOCYTES PERCENT AUTO 6 % (4-13); Mean Corpuscular Volume 85 fL (80-100); Mean Platelet Volume 10.2 fL (9.1-12.4); NEUTROPHILS ABSOLUTE AUTO 5.68 K/mm3 (1.96-9.15); NEUTROPHILS PERCENT AUTO 73 % (41-73); Platelet Count 194 K/mm3 (150-400); RDW Coefficient Variation 13.7 % (11.7-14.2); RDW Standard Deviation 42.4 fL (35.1-46.3); Red Blood Cell Count 4.59 M/mm3 (4.30-5.90); White Blood Cell Count 7.74 K/mm3 (4.00-11.30)
[2024-06-25 12:47] LABS: Albumin, Blood 2.9 g/dL (3.4-5.0); Albumin/Globulin Ratio 0.5 (0.8-1.8); Bilirubin, Total 0.7 mg/dL (0.1-1.0); Bun/Creatinine Ratio 16.8 (12.0-20.0); Calcium, Blood 9.3 mg/dL (8.5-10.1); Creatinine, Blood 0.66 mg/dL (0.60-1.20); Globulin, Blood 5.9 g/dL (2.2-4.0); Potassium, Blood 3.9 mmol/L (3.5-5.5); Total Protein, Blood 8.8 g/dL (6.4-8.2)
[2024-06-25] MEDS ORDERED: SULTRIDS PO (14:09)
[2024-06-25] MEDS ORDERED: CEPH500 PO (14:09)
[2024-06-25] MEDS ORDERED: ACET500 PO (14:09)
== END 2024-06-25 14:43 | disposition home or self-care (01) ==
LOC: ER 11:05
PROVIDERS: Physician Assistant
DX: L03.116 Cellulitis of left lower limb (principal); J44.9 Chronic obstructive pulmonary disease, unspecified; Z87.891 Personal history of nicotine dependence; Z88.1 Allergy status to other antibiotic agents; Z88.8 Allergy status to other drugs, medicaments and biological substances; Z79.899 Other long term (current) drug therapy; Z79.82 Long term (current) use of aspirin; Z79.01 Long term (current) use of anticoagulants
CPT/HCPCS: 36415; 73590; 80053; 85025; 85651; 86140; 99284-25; A9270

== ENCOUNTER → 2024-08-20 | Outpatient (CLI) | payer OTHER ==
[2024-08-20 19:38] LABS: Albumin, Blood 3.3 g/dL (3.4-5.0); Albumin/Globulin Ratio 0.9 (0.8-1.8); Bilirubin, Total 0.7 mg/dL (0.1-1.0); Creatinine, Blood 0.67 mg/dL (0.60-1.20); Globulin, Blood 3.8 g/dL (2.2-4.0); Potassium, Blood 3.7 mmol/L (3.5-5.5); Total Protein, Blood 7.1 g/dL (6.4-8.2)
== END ==
LOC: LAB 18:04 → LAB SHORT 18:04
PROVIDERS: Family Medicine
DX: I10 Essential (primary) hypertension (principal); I48.91 Unspecified atrial fibrillation; Z86.74 Personal history of sudden cardiac arrest; E87.1 Hypo-osmolality and hyponatremia
CPT/HCPCS: 80053; 83880

== ENCOUNTER → 2024-09-02 | Outpatient (CLI) | payer OTHER ==
[2024-09-03 10:52] LABS: Source, Urine Clean Catch
[2024-09-03 12:45] LABS: Appearance, Urine Clear (Clear); Bilirubin, Urine Neg (Neg); Blood, Urine 1+ (Neg); Color, Urine Yellow (P-Yellow); Glucose Qualitative, Urine Neg (Neg); Ketones, Urine Neg (Neg); Leukocyte Esterase, Urine Neg (Neg); Nitrite, Urine Neg (Neg); Protein, Urine 1+ (Neg); Urobilinogen, Urine 1+ (Normal); pH, Urine 6.5 (5.0-8.0)
[2024-09-03 13:15] LABS: Bacteria Mod /hpf; Calcium Oxalate Crystals Few /hpf; Squamous Epithelial Cells Many /hpf (Few); White Blood Cells, Urine 0-2 /hpf (0-5)
== END ==
LOC: LAB SHORT 10:49 → LAB 10:49
PROVIDERS: Family Medicine
DX: N39.0 Urinary tract infection, site not specified (principal)
CPT/HCPCS: 81001; 87086